=== PATIENT | male | born 1985 | race African-American/Black ===

== ENCOUNTER 2016-12-21 23:32 | Observation (INO) | payer OTHER ==
--- NOTE | 2016-12-22 00:05 | PDOC ---
History of Present Illness - General Chief Complaint: Seizure Stated Complaint: SEIZURE Time Seen by Provider: 12/22/16 00:05 - History of Present Illness Initial Comments: 12/22/16 00:10 Mr. Lemons is a 31 year old male with a significant past medical history of asthma who presents to the emergency department following a seizure at home. 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 He then sat up and failed to recognize her or their daughter - then started shaking uncontrollably. This lasted less than a minute before stopping. The then called EMS - per EMS he had approximately 4 more seizures. Was given 5 of versed en route. The patient denies chest pain, shortness of breath, headache and dizziness. Denies fever, chills, nausea, vomit, diarrhea and constipation. Denies dysuria, frequency, urgency and hematuria. Allergies: NKDA Past surgical history: Appendectomy Social history: Social EtOH and Marijuana use Past History - Past Medical History Allergies/Adverse Reactions: Allergies Allergy/AdvReac Type Severity Reaction Status Date / Time No Known Allergies Allergy Verified 12/21/16 23:43 Home Medications: Ambulatory Orders NK [No Known Home Medication] 12/21/16 Asthma: Yes (2009) Hypercholesterolemia: Yes (diet) - Surgical History Appendectomy: Yes (2001) - Psycho/Social/Smoking Cessation Hx Suicidal Ideation: No Smoking History: Current some day smoker Information on smoking cessation initiated: No Hx Alcohol Use: Yes Drug/Substance Use Hx: Yes (marijuana) Substance Use Type: Alcohol, Marijuana Review of Systems - Review of Systems Comments:: 12/22/16 00:10 GENERAL/CONSTITUTIONAL: No fever or chills. No weakness. HEAD, EYES, EARS, NOSE AND THROAT: No change in vision. No ear pain or discharge. No sore throat. CARDIOVASCULAR: No chest pain or shortness of breath RESPIRATORY: No cough, wheezing, or hemoptysis. GASTROINTESTINAL: No nausea, vomiting, diarrhea or constipation. GENITOURINARY: No dysuria, frequency, or change in urination. MUSCULOSKELETAL: No joint or muscle swelling or pain. No neck or back pain. SKIN: No rash NEUROLOGIC: No headache, vertigo, loss of consciousness, or change in strength/ sensation. ENDOCRINE: No increased thirst. No abnormal weight change HEMATOLOGIC/LYMPHATIC: No anemia, easy bleeding, or history of blood clots. ALLERGIC/IMMUNOLOGIC: No hives or skin allergy. *Physical Exam - Vital Signs Last Vital Signs Temp Pulse Resp BP Pulse Ox 74 23 104/65 98 12/21/16 23:33 12/21/16 23:33 12/21/16 23:33 12/21/16 23:33 - Physical Exam Comments: 12/22/16 00:10 GENERAL: Patient oriented to person, otherwise somnolent. In no acute distress HEAD: No signs of trauma, normocephalic, atraumatic EYES: PERRLA, EOMI, sclera anicteric, conjunctiva clear ENT: Auricles normal inspection, hearing grossly normal, nares patent, oropharynx clear without exudates. Moist mucosa NECK: Normal ROM, supple, no lymphadenopathy, JVD, or masses LUNGS: No distress, speaks full sentences, clear to auscultation bilaterally HEART: Regular rate and rhythm, normal S1 and S2, no murmurs, rubs or gallops, peripheral pulses normal and equal bilaterally. ABDOMEN: Soft, nontender, normoactive bowel sounds. No guarding, no rebound. No masses EXTREMITIES: Normal inspection, Normal range of motion, no edema. No clubbing or cyanosis. NEUROLOGICAL: Cranial nerves II through XII grossly intact. Normal speech, normal gait, no focal sensorimotor deficits SKIN: Warm, Dry, normal turgor, no rashes or lesions noted. ED Treatment Course - LABORATORY CBC & Chemistry Diagram: 12/22/16 00:45 12/22/16 00:45 *DC/Admit/Observation/Transfer Diagnosis at time of Disposition: Seizure - Discharge Dispostion Admit: Yes
[2016-12-22 01:00] LABS: BASOPHIL 0.9 % (0-2.0); EOSINOPHIL 1.3 % (0-4.5); MCH 29.7 pg (25.7-33.7); MCHC 34.4 g/dl (32.0-35.9); MEAN CELL VOLUME 86.2 fl (80-96); MEAN PLT VOLUME 9.1 fl (7.5-11.1); NEUTROPHILS 35.5 % (42.8-82.8); PLATELET COUNT 203 K/MM3 (134-434); RDW 13.9 % (11.9-15.9); WHITE BLOOD COUNT 5.1 K/mm3 (4.0-10.0)
[2016-12-22 01:23] LABS: ALBUMIN 4.1 g/dl (3.4-5.0); ANION GAP 9 (8-16); BILIRUBIN,TOTAL 0.5 mg/dL (0.2-1.0); CALCIUM 8.3 mg/dL (8.5-10.1); CO2 27 mmol/L (21-32); CREATININE 1.1 mg/dL (0.7-1.3); GLUCOSE,RANDOM 83 mg/dL (74-106); SGOT/AST 12 U/L (15-37); SGPT/ALT 22 U/L (12-78); TOT PROT 7.2 g/dl (6.4-8.2)
[2016-12-22 01:24] LABS: ALK PHOS 69 U/L (45-117)
[2016-12-22 01:51] LABS: PLATELET ESTIMATE ADEQUATE (NORMAL)
--- NOTE | 2016-12-22 02:00 | PDOC ---
Attending Attestation - Resident Resident Name: Henri Macario - ED Attending Attestation I have performed the following: I have examined & evaluated the patient, The case was reviewed & discussed with the resident, I agree w/resident's findings & plan, Exceptions are as noted - HPI HPI: 12/22/16 01:54 31 M with h/o asthma presents to ER with altered mental status. Per , pt was asleep at around 9pm today. 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 She states that she shook him and put ice on his face to wake him with no success. She then witness the patient shaking. She reports seeing his entire body shake but denies seeing any rhythmic jerking of his arms or legs. This lasted under a minute. Pt slowly began to regain consciousness afterwards. When EMS arrived, she states that the pt began to shake once again. EMS administered a medication, but is unsure what they gave. Pt has no h/o seizure disorder. Is a social drinker but not daily drinker. No h/ o withdrawal. Last drink was today. Pt also uses marijuana occasionally but no other substances. Per , pt has not had fevers recently. He did have an episode of vomiting 4 days ago but has since been well. In ER, pt is somnolent but arousable. Able to follow commands. Shakes his head "no" when asked if he has pain. - Physicial Exam PE: 12/22/16 01:59 "GENERAL: somnolent but arousable, in no acute distress HEAD: No signs of trauma EYES: PERRLA, EOMI, sclera anicteric, conjunctiva clear ENT: Auricles normal inspection, hearing grossly normal, nares patent, oropharynx clear without exudates. Moist mucosa NECK: Normal ROM, no meningismus, no tenderness, supple, no lymphadenopathy, JVD , or masses LUNGS: Breath sounds equal, clear to auscultation bilaterally. No wheezes, and no crackles HEART: Regular rate and rhythm, normal S1 and S2, no murmurs, rubs or gallops ABDOMEN: Soft, nontender, normoactive bowel sounds. No guarding, no rebound. No masses EXTREMITIES: Normal range of motion, no edema. No clubbing or cyanosis. No cords, erythema, or tenderness NEUROLOGICAL: Cranial nerves II through XII grossly intact. Follows commands, moves all extremities SKIN: Warm, Dry, normal turgor, no rashes or lesions noted. " - Medical Decision Making 12/22/16 02:00 31 M presents to ER with unresponsiveness and possible seizure-like activity. Pt appears post-ictal in ER but may also be lethargic 2/2 medication received by EMS. Has non-focal neuro exam. No evidence of infectious process on exam, afebrile with normal vitals. However, will work up for infectious process as his seizure-like activity may actually be rigors. No signs of meningismus on exam. Pt with no tongue biting or incontinence on exam and no seizure history, making seizure less likely. No h/o withdrawal and no signs of active ETOH withdrawal. - Labs, UA, cultures - CXR - CTH 12/22/16 06:55 CTH negative. Will admit for EEG and MRI for work up of possible seizures.
[2016-12-22] MEDS ORDERED: SODIUM CHLORIDE 1,000 ML IV SCH (04:45)
--- NOTE | 2016-12-22 05:11 | HP ---
CHIEF COMPLAINT: seizures PCP: unknown HISTORY OF PRESENT ILLNESS: Patient is a 31 year old male with a past medical history of asthma presented to the ED after having multiple seizures witnessed by his girlfriend. 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 After a few minutes she put ice on him and patient woke up very confused. She said he did not recognize her and when he woke up he was talking "jibberish". She also says she saw him possibly biting on his tongue. When he woke up she felt like he wanted to communicate with her but he couldn't. She said he had multiple jerking episodes that lasted about a minute and will follow with a more intense episode 5 minutes later. Patient does not remember having these events. He was given IV Versed 5mg by EMS. Earlier that day he said he was at a [facility] where he drank alcohol and smoked weed. He denies bladder incontinence, nausea, vomiting, recent falls, cough, or travel. ER course was notable for: (1) Head CT: no acute pathology (2)EKG: NSR Recent Travel: none PAST MEDICAL HISTORY: Asthma PAST SURGICAL HISTORY: Social History: Smokin cigarettes a day Alcohol: occasionally Drugs: marijuana Family History: not known Allergies No Known Allergies Allergy (Verified 12/21/16 23:43) HOME MEDICATIONS: Home Medications Medication Instructions Recorded NK [No Known Home Medication] 12/21/16 REVIEW OF SYSTEMS GENERAL/CONSTITUTIONAL: No fever or chills. No weakness. HEAD, EYES, EARS, NOSE AND THROAT: No change in vision. No ear pain or discharge. No sore throat. CARDIOVASCULAR: No chest pain or shortness of breath RESPIRATORY: No cough, wheezing, or hemoptysis. GASTROINTESTINAL: No nausea, vomiting, diarrhea or constipation. GENITOURINARY: No dysuria, frequency, or change in urination. MUSCULOSKELETAL: No joint or muscle swelling or pain. No neck or back pain. SKIN: No rash NEUROLOGIC: No headache, vertigo, loss of consciousness, or change in strength/ sensation. ENDOCRINE: No increased thirst. No abnormal weight change HEMATOLOGIC/LYMPHATIC: No anemia, easy bleeding, or history of blood clots. ALLERGIC/IMMUNOLOGIC: No hives or skin allergy PHYSICAL EXAMINATION Vital Signs - 24 hr 12/21/16 23:33 Pulse Rate 74 Respiratory 23 Rate Blood Pressure 104/65 O2 Sat by Pulse 98 Oximetry (%) GENERAL: Awake, alert, and fully oriented, in no acute distress. HEAD: Normal with no signs of trauma. EYES: Pupils equal, round and reactive to light, extraocular movements intact, sclera anicteric, conjunctiva clear. THROAT: oropharynx clear without exudates. Moist mucous membranes. NECK: supple without lymphadenopathy, JVD, or masses. LUNGS: Breath sounds equal, clear to auscultation bilaterally. No wheezes, and no crackles. No accessory muscle use. HEART: Regular rate and rhythm, normal S1 and S2 without murmur, rub or gallop. ABDOMEN: Soft, nontender, not distended, normoactive bowel sounds, no guarding, no rebound, no masses. No hepatomegaly or splenomegaly. MUSCULOSKELETAL: Normal range of motion at all joints. No bony deformities or tenderness. No CVA tenderness. UPPER EXTREMITIES: tenderness to right wrist. 2+ pulses, warm, well-perfused. No cyanosis. No clubbing. No peripheral edema. LOWER EXTREMITIES: 2+ pulses, warm, well-perfused. No calf tenderness. No peripheral edema. NEUROLOGICAL: Cranial nerves II-XII intact. Normal speech. Normal gait. SKIN: Warm, dry, normal turgor, no rashes or lesions noted, normal capillary refill. Laboratory Results - last 24 hr 12/22/16 12/22/16 12/22/16 00:45 00:45 00:45 WBC 5.1 RBC 4.89 Hgb 14.5 Hct 42.1 MCV 86.2 MCH 29.7 MCHC 34.4 RDW 13.9 Plt Count 203 MPV 9.1 Neutrophils % 35.5 L Lymphocytes % 54.4 H Monocytes % 7.9 Eosinophils % 1.3 Basophils % 0.9 Platelet Estimate Adequate Platelet Comment Rare giant plts Sodium 142 Potassium 3.8 Chloride 106 Carbon Dioxide 27 Anion Gap 9 BUN 14 Creatinine 1.1 Creat Clearance w eGFR > 60 Random Glucose 83 Lactic Acid 2.3 H* Calcium 8.3 L Total Bilirubin 0.5 AST 12 L ALT 22 Alkaline Phosphatase 69 Total Protein 7.2 Albumin 4.1 ASSESSMENT/PLAN: Patient is a 31 yo M with a history of Asthma was brought in by EMS and admitted for seizures. #Status Epilepticus -Neurology consulted -Follow up MRI -Follow up EEG -Neuro Assessment Q2 -Follow up head CT -Follow up U/A, Utox #FEN IV Fluids NS 75 CC/Hour Electrolytes WNL Regular Diet #PPX: Start Heparin 5000 SQ Visit type - Emergency Visit Emergency Visit: Yes ED Registration Date: 12/22/16 Care time: The patient presented to the Emergency Department on the above date and was hospitalized for further evaluation of their emergent condition. - New Patient This patient is new to me today: Yes Date on this admission: 12/24/16 - Critical Care Critical Care patient: No
[2016-12-22] MEDS ORDERED: HEPARIN NA (PORCINE) 5,000 UNITS/ML 1ML VIAL ONE (06:02)
--- NOTE | 2016-12-22 06:08 | PN ---
Teaching Attending Note Name of Resident: Sarah Nam ATTENDING PHYSICIAN STATEMENT I saw and evaluated the patient. I reviewed the resident's note and discussed the case with the resident. I agree with the resident's findings and plan as documented. SUBJECTIVE: This is a 31 year old man with a history of asthma who was brought in to the ER after having seizures. He says that he was at a barbecue during the day yesterday. He was doing the cooking and did not eat but had 3 mixed drinks. He did not notice anything unusual. He got home around 7 pm and remembers having an argument with his girlfriend. He does not remember anything after that until he awoke in the ER. As per his girlfriend, she was unable to wake him to go to work around 9:30 pm. She put ice on his body around 10 pm. He sat up and and appeared confused. He then began shake uncontrollably for approximately 1 minute. He was not incontinent and did not bite his tongue. She called EMS and they witnessed him to have additional seizures. He was given Versed 5 mg IV by EMS. He says he has had a mild headache for the last few days. He also notes that he has not been sleeping well recently because he is working nights. He drinks socially and denies drug use. OBJECTIVE: Vital Signs Period Temp Pulse Resp BP Sys/Banks Pulse Ox Last 24 Hr 74 23 104/65 98 HEART: S1S2, RRR LUNGS: Clear ABDOMEN: Soft, non-tender, non-distended, normal BS EXTREMITIES: No edema ASSESSMENT AND PLAN: This is a 31 year old man with a history of asthma who was presents to the ER with seizures. 1. New-onset seizures - Place in observation - Seizure precautions - Neurology consult - MRI of brain ordered by ER
[2016-12-22] MEDS: HEPARIN NA (PORCINE) 5,000 UNITS/ML 1ML VIAL SQ SCH ×2 (06:13→13:30)
[2016-12-22 08:28] VITALS: BMI 30.1
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
[2016-12-22] MEDS ORDERED: VALPROATE SODIUM 500 MG/5 ML VIAL IVPB ONE ×2 (09:32→09:35)
--- NOTE | 2016-12-22 09:44 | EKG ---
Test Reason : Blood Pressure : / mmHG Vent. Rate : 065 BPM Atrial Rate : 065 BPM P-R Int : 178 ms QRS Dur : 104 ms QT Int : 406 ms P-R-T Axes : -06 039 021 degrees QTc Int : 422 ms NORMAL SINUS RHYTHM EARLY REPOLARIZATION RSR' OR QR PATTERN IN V1 SUGGESTS RIGHT VENTRICULAR CONDUCTION DELAY NORMAL ECG NO PREVIOUS ECGS AVAILABLE Confirmed by MD KALYANI, PRANEETH ([id number]) on 12/22/2016 9:43:46 AM Referred By: Confirmed By:PRANEETH AUGUSTE MD
[2016-12-22] MEDS ORDERED: VALPROATE SODIUM 500 MG/5 ML VIAL IV ONE (10:00)
[2016-12-22 12:21] LABS: URINE APPEARANCE CLEAR; URINE BILIRUBIN NEGATIVE (NEGATIVE); URINE BLOOD NEGATIVE (NEGATIVE); URINE COLOR YELLOW; URINE GLUCOSE (UA) NEGATIVE (NEGATIVE); URINE KETONE NEGATIVE (NEGATIVE); URINE LEUK ESTERASE NEGATIVE (NEGATIVE); URINE NITRITE NEGATIVE (NEGATIVE); URINE PROTEIN NEGATIVE (NEGATIVE); URINE UROBILINOGEN NEGATIVE mg/dL (0.2-1.0)
[2016-12-22 12:33] LABS: URINE MARIJUANA THC POSITIVE ng/ml (CUTOFF=50)
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
[2016-12-22] MEDS: DIVALPROEX SODIUM 500 MG TABLET E.C. PO SCH ×2 (13:30→21:21)
[2016-12-22] MEDS ORDERED: ACETAMINOPHEN 325 MG TABLET (FP) PO PRN (14:22)
[2016-12-22 14:47] LABS: BASOPHIL 0.8 % (0-2.0); EOSINOPHIL 0.7 % (0-4.5); MCH 29.2 pg (25.7-33.7); MCHC 33.6 g/dl (32.0-35.9); MEAN CELL VOLUME 86.8 fl (80-96); MEAN PLT VOLUME 8.9 fl (7.5-11.1); NEUTROPHILS 49.7 % (42.8-82.8); PLATELET COUNT 203 K/MM3 (134-434); RDW 13.9 % (11.9-15.9); WHITE BLOOD COUNT 5.7 K/mm3 (4.0-10.0)
[2016-12-22 15:16] LABS: ANION GAP 8 (8-16); CALCIUM 8.5 mg/dL (8.5-10.1); CO2 27 mmol/L (21-32); CREATININE 1.2 mg/dL (0.7-1.3); GLUCOSE,RANDOM 95 mg/dL (74-106)
[2016-12-22 15:26] LABS: THYROID STIMULATING HORMONE 0.67 uIU/ml (0.358-3.74)
[2016-12-23 07:50] LABS: BASOPHIL 0.7 % (0-2.0); MCH 29.3 pg (25.7-33.7); MCHC 33.7 g/dl (32.0-35.9); MEAN CELL VOLUME 86.8 fl (80-96); MEAN PLT VOLUME 9.2 fl (7.5-11.1); PLATELET COUNT 204 K/MM3 (134-434); RDW 14.3 % (11.9-15.9); WHITE BLOOD COUNT 5.5 K/mm3 (4.0-10.0)
[2016-12-23 08:08] LABS: ALBUMIN 3.7 g/dl (3.4-5.0); ALK PHOS 67 U/L (45-117); ANION GAP 8 (8-16); BILIRUBIN,TOTAL 0.7 mg/dL (0.2-1.0); CALCIUM 8.8 mg/dL (8.5-10.1); CO2 28 mmol/L (21-32); CREATININE 1.3 mg/dL (0.7-1.3); GLUCOSE,RANDOM 80 mg/dL (74-106); SGOT/AST 12 U/L (15-37); SGPT/ALT 22 U/L (12-78); TOT PROT 6.7 g/dl (6.4-8.2)
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
[2016-12-23] MEDS ORDERED: PT OWN MED DRAWER 7, Y5N ONE (09:47)
[2016-12-23] MEDS: DIVALPROEX SODIUM 500 MG TABLET E.C. PO SCH (09:48)
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
[2016-12-23 14:17] VITALS: BP 124/66; PULSE 73; TEMP 99
== END 2016-12-23 16:14 | disposition home or self-care (01) ==
LOC: JER 23:32 → JERBED 12-22 04:17 → J5S 12-22 08:13
PROVIDERS: ADMIT Internal Medicine; ATTEND Nurse Practitioner Family
PROC: 3E013GC Introduction of Other Therapeutic Substance into Subcutaneous Tissue, Percutaneous Approach (ICD-10-PCS; principal; 2016-12-22)
PROC: 3E0337Z Introduction of Electrolytic and Water Balance Substance into Peripheral Vein, Percutaneous Approach (ICD-10-PCS; 2016-12-22)
DX: R56.9 Unspecified convulsions (principal); J45.909 Unspecified asthma, uncomplicated; S06.0X9A Concussion with loss of consciousness of unspecified duration, initial encounter; X58.XXXA Exposure to other specified factors, initial encounter; Y93.9 Activity, unspecified; Y92.9 Unspecified place or not applicable; R22.31 Localized swelling, mass and lump, right upper limb; F17.210 Nicotine dependence, cigarettes, uncomplicated
CPT/HCPCS: 36415; 70450-TC; 70551-TC; 71010-TC; 73130-TC-RT; 80048; 80053; 80307; 81003; 83605; 84443; 85025; 93005; 93010; 95816; 99285-25; G0378; J1644

== ENCOUNTER 2017-06-24 13:01 | Inpatient (IN) | payer OTHER ==
--- NOTE | 2017-06-24 13:12 | PDOC ---
Attending Attestation - HPI HPI: 06/24/17 14:36 The patient is a 32 year old male with history of seizures who presents to the ED agitated. Girlfriend at bedside reports the patient took a bottle of Benadryl this morning prior to the onset of his agitation. He was seen at his neurologist's office today but was sent to the ED for further evaluation. En route to the hospital the patient became increasingly agitated. Pt is unable to provide remainder of history secondary to agitation. Documentation prepared by Connie Mata, acting as medical records supervisor for Mindy Gaviria MD. <Connie Mata - Last Filed: 06/24/17 14:36> - Resident Resident Name: Jluis Newton - ED Attending Attestation I have performed the following: I have examined & evaluated the patient, The case was reviewed & discussed with the resident, I agree w/resident's findings & plan, Exceptions are as noted - Physicial Exam PE: GENERAL: Awake, alert, extremely agitated, screaming. Multiple police officers at bedside. Restrained in handcuffs by PD. HEAD: No signs of trauma EYES: PERRLA, EOMI, sclera anicteric, conjunctiva clear ENT: Auricles normal inspection, hearing grossly normal, nares patent, oropharynx clear without exudates. Dry mucosa NECK: Normal ROM, supple, no lymphadenopathy, JVD, or masses LUNGS: Breath sounds equal, clear to auscultation bilaterally. No wheezes, and no crackles HEART: Tachycardic and regular. , no murmurs, rubs or gallops ABDOMEN: Soft, nontender, normoactive bowel sounds. No guarding, no rebound. No masses EXTREMITIES: Normal range of motion, no edema. No clubbing or cyanosis. No cords, erythema, or tenderness NEUROLOGICAL: Cranial nerves II through XII grossly intact. Normal speech. Motor and sensation intact. SKIN: Warm, Dry, normal turgor, no rashes or lesions noted. - Medical Decision Making Pt presents s/p benadryl overdose. He was given ativan for agitation, haney was placed for urinary retention. He improved with ativan. Labs returned with elevated anion gap and low Bicarb. Will send ABG, lactate. <Mindy Gaviria - Last Filed: 06/24/17 14:54>
[2017-06-24 13:13] VITALS: BMI 32.5
--- NOTE | 2017-06-24 13:16 | PDOC ---
History of Present Illness - General Chief Complaint: Overdose Stated Complaint: OVERDOSE Time Seen by Provider: 06/24/17 13:09 - History of Present Illness Initial Comments: 06/24/17 13:19 The patient is a 32 year old male with a history of seizures who presents for evaluation of agitation. The patient is brought in by Hector MORALES. Per report from Christoph MORALES, the patient's called police due to the patient reportedly taking a bottle of benadryl and becoming acutely agitated requiring full restraints from Christoph MORALES. The patient's girlfriend noted that the patient was more lethargic this morning and saw that he took benadryl but is unsure of the amount. They initially presented to the patient's neurologist's appointment for evaluation and then sent to the ER for further evaluation. On rout to the ED, the patient became agutely agitated tearing off his clothes resulting in the patient's girlfriend calling hector MORALES. The patient is acutely agitated on exam and unable to cooperate. Past History - Past Medical History Allergies/Adverse Reactions: Allergies Allergy/AdvReac Type Severity Reaction Status Date / Time No Known Allergies Allergy Verified 06/24/17 13:09 Home Medications: Ambulatory Orders Doxylamine Succinate [Sleep Aid] 50 mg PO HS PRN 06/24/17 levETIRAcetam [Keppra -] 500 mg PO BID 06/24/17 Asthma: Yes (2009) COPD: No Hypercholesterolemia: Yes (diet) - Surgical History Appendectomy: Yes (2001) - Suicide/Smoking/Psychosocial Hx Smoking History: Never smoked Have you smoked in the past 12 months: Yes Information on smoking cessation initiated: No 'Breaking Loose' booklet given: 12/22/16 Hx Alcohol Use: Yes (drinks alcohol socially ) Drug/Substance Use Hx: Yes (marijuana) Substance Use Type: Alcohol, Marijuana Hx Substance Use Treatment: No Review of Systems - Review of Systems Able to Perform ROS?: No (Agitation) *Physical Exam - Vital Signs Last Vital Signs Temp Pulse Resp BP Pulse Ox 124 H 18 160/68 06/24/17 13:10 06/24/17 13:10 06/24/17 13:10 - Physical Exam Comments: 06/24/17 13:32 General Appearance: Nourished. Acutely Agitated HEENT: Minimally reactive small pupils. Dry mucus membranes. No Pharyngeal Erythema, Tonsillar Exudate, Tonsillar Erythema Neck: No Cervical Lymphadenopathy Respiratory/Chest: Lungs Clear, Normal Breath Sounds. No Crackles, Rales, Rhonchi, Wheezing Cardiovascular: Regular Rhythm, Tachycardic. No Murmur, Gallops, Rubs Gastrointestinal/Abdominal: Normal Bowel Sounds, Soft. No Guarding, Rebound, Tenderness Musculoskeletal: No CVA Tenderness Extremity: Normal Capillary Refill Integumentary: Normal Color, Dry, Warm Neurologic: Patient is acutely Agitated and uncooperative with the exam. Moving all 4 extremities equally. Heart Score/ECG Review #1 ECG reviewed & interpreted by me at: 13:36 (Sinus Tachycardia) General ECG Interpretation: Sinus Rhythm, Normal Intervals, No acute ischemic changes ED Treatment Course - LABORATORY CBC & Chemistry Diagram: 06/24/17 13:20 06/24/17 16:31 - Medications Given in the ED: ED Medications Discontinued Medications Generic Name Dose Route Start Last Admin Trade Name Freq PRN Reason Stop Dose Admin Lorazepam 2 mg 06/24/17 13:11 06/24/17 13:13 Ativan Injection - IVPUSH 06/24/17 13:12 2 mg ONCE ONE Administration Medical Decision Making - Medical Decision Making 06/24/17 13:36 The patient is a 32 year old male with a history of seizures who presents for evaluation of agitation. Given the patient's acute agitation with a history of ingestion of an unknown amount of Benadryl, it is likely the patient's current agitation is due to a dystonic reaction to the benadryl. The patient required 2mg of Ativan in the ED. We will obtain a cbc, cmp, ekg, ua, urine tox, etoh level, acetominophen level, salycilate level to evaluate further. We will continue to monitor and reassess. 06/24/17 14:40 We discussed the case with Poison Control who recommended admission for further monitoring and treating the patient with Benzodiazapines to keep the patient calm. The patient should be monitored due to his abnormal vital signs as well. cbc demonstrates an elevated WBC. The patient's cmp demonstrates a bicarb of 6 and anion gap of 35 with a creatinine of 2.0. U tox demonstrates positive THC. We will obtain a abg and lactate to investigate the patient's anion gap of 35. We will also treat the patient with iv fluids in the meantime and repeat a bmp. 06/24/17 18:54 BMP demonstrates a bicarb of 21 and an anion gap of 10. We discussed the case with the hospitalist team who accepted the patient for admission. *DC/Admit/Observation/Transfer Diagnosis at time of Disposition: ANA MARIA (acute kidney injury), Lactic acid acidosis Overdose Qualifiers: Encounter type: initial encounter Injury intent: undetermined intent Qualified Code(s): T50.904A - Poisoning by unspecified drugs, medicaments and biological substances, undetermined, initial encounter - Discharge Dispostion Condition at time of disposition: Stable Admit: Yes - Referrals - Patient Instructions - Post Discharge Activity
[2017-06-24 13:32] LABS: BASO % 0.6 % (0-2.0); EOS % 0.2 % (0-4.5); HEMOGLOBIN 16.4 GM/dL (11.7-16.9); LYMPH % 38.9 % (8-40); MCH 29.6 pg (25.7-33.7); MCHC 32.2 g/dl (32.0-35.9); MEAN CELL VOLUME 91.8 fl (80-96); MEAN PLT VOLUME 9.6 fl (7.5-11.1); MONO % 9.9 % (3.8-10.2); NEUT % 50.4 % (42.8-82.8); PLATELET COUNT 240 K/MM3 (134-434); RBC 5.55 M/mm3 (4.00-5.60); RDW 14.3 % (11.9-15.9); WHITE BLOOD COUNT 11.6 K/mm3 (4.0-10.0)
[2017-06-24 13:47] LABS: URINE APPEARANCE CLEAR; URINE BILIRUBIN NEGATIVE (NEGATIVE); URINE BLOOD 1+ (NEGATIVE); URINE COLOR LTYELLOW; URINE GLUCOSE (UA) NEGATIVE (NEGATIVE); URINE KETONE NEGATIVE (NEGATIVE); URINE LEUK ESTERASE NEGATIVE (NEGATIVE); URINE NITRITE NEGATIVE (NEGATIVE); URINE UROBILINOGEN NEGATIVE mg/dL (0.2-1.0)
[2017-06-24 13:53] LABS: URINE PROTEIN 2+ (NEGATIVE)
[2017-06-24 13:54] LABS: URINE BACTERIA FEW /hpf (NONE SEEN); URINE HYALINE CAST 5 /lpf; URINE MUCUS RARE
[2017-06-24 14:11] LABS: ALBUMIN 5.4 g/dl (3.4-5.0); ALK PHOS 78 U/L (45-117); ANION GAP 35 (8-16); BILIRUBIN,TOTAL 0.5 mg/dL (0.2-1.0); BLOOD UREA NITROGEN 20 mg/dL (7-18); CALCIUM 9.6 mg/dL (8.5-10.1); CHLORIDE 102 mmol/L (98-107); CO2 6 mmol/L (21-32); GLUCOSE,RANDOM 200 mg/dL (74-106); POTASSIUM 4.1 mmol/L (3.5-5.1); SGOT/AST 25 U/L (15-37); SGPT/ALT 48 U/L (12-78); SODIUM 143 mmol/L (136-145); TOT PROT 9.2 g/dl (6.4-8.2)
[2017-06-24 14:14] LABS: SALICYLATE 5.342 mg/dL
[2017-06-24 14:32] LABS: ACETAMINOPHEN <2.0 ug/mL
[2017-06-24 14:50] LABS: COCAINE, UR NEGATIVE ng/ml (CUTOFF=300); METHADONE, UR NEGATIVE ng/ml (CUTOFF=300); OPIATES, URI NEGATIVE ng/ml (CUTOFF=300); PHENCYCLIDINE,URINE NEGATIVE ng/ml (CUTOFF=25); URINE AMPHETAMINES NEGATIVE ng/ml (CUTOFF=500); URINE BARBITURATES NEGATIVE ng/ml (CUTOFF=200); URINE BENZODIAZEPINES NEGATIVE ng/ml (CUTOFF=200)
[2017-06-24] MEDS ORDERED: SODIUM CHLORIDE 1,000 ML IV STA ×2 (14:55→17:13)
[2017-06-24 16:07] LABS: CARBOXYHEMOGLOBIN 1.2 gm% (0.5-2.0)
--- NOTE | 2017-06-24 16:24 | EKG ---
Test Reason : Blood Pressure : / mmHG Vent. Rate : 127 BPM Atrial Rate : 127 BPM P-R Int : 000 ms QRS Dur : 086 ms QT Int : 412 ms P-R-T Axes : 042 045 061 degrees QTc Int : 598 ms SINUS TACHYCARDIA NONSPECIFIC T WAVE ABNORMALITY ABNORMAL ECG WHEN COMPARED WITH ECG OF 22-DEC-2016 03:16, VENT. RATE HAS INCREASED BY [address] NO LONGER ELEVATED IN ANTEROLATERAL LEADS NONSPECIFIC T WAVE ABNORMALITY NOW EVIDENT IN LATERAL LEADS Confirmed by MD VIANCA, SUDHEER ([id number]) on 06/24/2017 4:24:05 PM Referred By: Confirmed By:SUDHEER COLEY MD
[2017-06-24 17:04] LABS: ANION GAP 10 (8-16); BLOOD UREA NITROGEN 17 mg/dL (7-18); CALCIUM 7.9 mg/dL (8.5-10.1); CHLORIDE 107 mmol/L (98-107); CO2 21 mmol/L (21-32); CREATININE 1.8 mg/dL (0.7-1.3); GLUCOSE,RANDOM 122 mg/dL (74-106); POTASSIUM 4.5 mmol/L (3.5-5.1); SODIUM 138 mmol/L (136-145)
[2017-06-24 17:57] LABS: ARTERIAL BLD GAS O2 SATURATION 96.8 % (90-98.9); ARTERIAL BLOOD GAS BASE EXCESS -5.9 meq/l (-2-2); ARTERIAL BLOOD GAS PCO2 33.3 mmHg (35-45); ARTERIAL BLOOD GAS pH 7.36 (7.35-7.45)
[2017-06-24 17:58] LABS: ALLENS TEST POSITIVE
--- NOTE | 2017-06-24 18:38 | HP ---
CHIEF COMPLAINT: "I has a seizure" PCP: Dr Adam HISTORY OF PRESENT ILLNESS: This is a 32 yo m with PMH of seizures d/p on keppra, who presents s/p benadryl overdose. he was initially brought in by girlfriend, agitated, experienced dystonia, had tachycardia, urinary retention and mydriasis. Was treated with ativan, haney and IVF. above symptoms resolved. Poison control was sontacted and per their instructions, patient is to be treated with IVF and benzos only. Patient states that last night he took a whole bottle of benadryl because he desperately wanted to sleep and felt depressed. He is unsure of whether he wanted top but states "my life is in disarray". he has not attempted SI before but states that he has been depressed for a while. denies changes in appetite or withdrawal from social activities. He currently denies CP, sob, n/v , and pain, diaphoresis, vision changes, dry mouth/eyes, foral weakness, numbness. QTc 598 ER course was notable for: (1)labs (2)ekg (3)benzo, ivf Recent Travel: denies PAST MEDICAL HISTORY: as above PAST SURGICAL HISTORY: denies Social History: lives with gf, 5 kids Smokin cogs/day since 13 yo Alcohol: social once a mo Drugs: marijuana smoker daily Family History: sister had CVA, SZ Allergies No Known Allergies Allergy (Verified 06/24/17 13:09) HOME MEDICATIONS: Home Medications Medication Instructions Recorded Doxylamine Succinate [Sleep Aid] 50 mg PO HS PRN 06/24/17 levETIRAcetam [Keppra -] 500 mg PO BID 06/24/17 REVIEW OF SYSTEMS CONSTITUTIONAL: Absent: fever, chills, diaphoresis, generalized weakness, malaise HEENT: Absent: rhinorrhea, nasal congestion, throat pain, throat swelling, difficulty swallowing, visual changes CARDIOVASCULAR: Absent: chest pain, syncope, palpitations, irregular heart rate, lightheadedness , peripheral edema RESPIRATORY: Absent: cough, shortness of breath GASTROINTESTINAL: Absent: abdominal pain, abdominal distension, nausea, vomiting, diarrhea, constipation GENITOURINARY: Absent: dysuria, MUSCULOSKELETAL: Absent: myalgia, arthralgia SKIN: Absent: rash, itching, pallor HEMATOLOGIC/IMMUNOLOGIC: Absent: easy bleeding, easy bruising ENDOCRINE: Absent: unexplained weight gain, unexplained weight loss, heat intolerance, cold intolerance NEUROLOGIC: Absent: headache, focal weakness or paresthesias PSYCHIATRIC: Absent: homicidal ideation, hallucinations. PHYSICAL EXAMINATION Vital Signs - 24 hr 06/24/17 06/24/17 06/24/17 13:10 13:15 13:42 Temperature Pulse Rate 124 H Pulse Rate [ 122 H Apical] Respiratory 18 30 H Rate Blood Pressure 160/68 Blood Pressure 142/80 [Left Arm] O2 Sat by Pulse 98 98 Oximetry (%) 06/24/17 06/24/17 06/24/17 13:46 16:28 16:47 Temperature 98.1 F Pulse Rate Pulse Rate [ 100 H 100 H Apical] Respiratory 20 20 Rate Blood Pressure Blood Pressure 132/80 134/62 [Left Arm] O2 Sat by Pulse 98 98 Oximetry (%) 06/24/17 18:33 Temperature Pulse Rate Pulse Rate [ 89 Apical] Respiratory 20 Rate Blood Pressure Blood Pressure 126/82 [Left Arm] O2 Sat by Pulse 98 Oximetry (%) GENERAL: Awake, alert, and fully oriented, in no acute distress. HEAD: Normal with no signs of trauma. EYES: Pupils equal, round and reactive to light, slight mydriasis, extraocular movements intact, sclera anicteric, conjunctiva clear. No lid lag. EARS, NOSE, THROAT: Moist mucous membranes. NECK: supple without JVD LUNGS: Breath sounds equal, clear to auscultation bilaterally. HEART: Regular rate and rhythm, normal S1 and S2 ABDOMEN: Soft, nontender, not distended, normoactive bowel sounds, no guarding, no rebound, no masses. MUSCULOSKELETAL: No CVA tenderness. UPPER EXTREMITIES: 2+ pulses, warm, well-perfused. No cyanosis. No clubbing. No peripheral edema. LOWER EXTREMITIES: 2+ pulses, warm, well-perfused. No calf tenderness. No peripheral edema. NEUROLOGICAL: Cranial nerves II-XII intact. slightly slurred speech, strength 5 /5 in ue le, 1+ patellar reflexes, sensation intact, no dystonia PSYCHIATRIC: Cooperative. Good eye contact. Appropriate mood and affect. SKIN: Warm, dry, normal turgor Laboratory Results - last 24 hr 06/24/17 06/24/17 06/24/17 13:20 13:20 13:20 WBC 11.6 H D RBC 5.55 Hgb 16.4 D Hct 51.0 H D MCV 91.8 MCH 29.6 MCHC 32.2 RDW 14.3 Plt Count 240 MPV 9.6 Neutrophils % 50.4 D Lymphocytes % 38.9 Monocytes % 9.9 Eosinophils % 0.2 Basophils % 0.6 Anticoagulation Therapy Puncture Site ABG pH ABG pCO2 at Pt Temp ABG pO2 at Pt Temp ABG HCO3 ABG O2 Sat (Measured) ABG O2 Content ABG Base Excess Taco Test Carboxyhemoglobin Methemoglobin O2 Delivery Device Oxygen Flow Rate Vent Mode Vent Rate Mechanical Rate Pressure Support Vent Sodium 143 Potassium 4.1 Chloride 102 Carbon Dioxide 6 L D Anion Gap 35 H BUN 20 H D Creatinine 2.0 H D Creat Clearance w eGFR 38.44 POC Glucometer [phone] Random Glucose 200 H D Lactic Acid Calcium 9.6 Total Bilirubin 0.5 D AST 25 D ALT 48 D Alkaline Phosphatase 78 Ammonia Total Protein 9.2 H D Albumin 5.4 H D Urine Color Urine Appearance Urine pH Ur Specific [place] Urine Protein Urine Glucose (UA) Urine Ketones Urine Blood Urine Nitrite Urine Bilirubin Urine Urobilinogen Ur Leukocyte Esterase Urine WBC (Auto) Urine RBC (Auto) Urine Bacteria Hyaline Casts Urine Mucus Salicylates 5.342 Opiates Screen Methadone Screen Acetaminophen <2.0 Barbiturate Screen Valproic Acid Phencyclidine Screen Ur Amphetamines Screen MDMA (Ecstasy) Screen Benzodiazepines Screen Cocaine Screen U Marijuana (THC) Screen Alcohol, Quantitative < 5.0 06/24/17 06/24/17 06/24/17 13:30 13:30 14:15 WBC RBC Hgb Hct MCV MCH MCHC RDW Plt Count MPV Neutrophils % Lymphocytes % Monocytes % Eosinophils % Basophils % Anticoagulation Therapy Puncture Site ABG pH ABG pCO2 at Pt Temp ABG pO2 at Pt Temp ABG HCO3 ABG O2 Sat (Measured) ABG O2 Content ABG Base Excess Taco Test Carboxyhemoglobin Methemoglobin O2 Delivery Device Oxygen Flow Rate Vent Mode Vent Rate Mechanical Rate Pressure Support Vent Sodium Potassium Chloride Carbon Dioxide Anion Gap BUN Creatinine Creat Clearance w eGFR POC Glucometer Random Glucose Lactic Acid Calcium Total Bilirubin AST ALT Alkaline Phosphatase Ammonia 54.78 H Total Protein Albumin Urine Color Ltyellow Urine Appearance Clear Urine pH 6.0 Ur Specific [place] 1.019 Urine Protein 2+ H Urine Glucose (UA) Negative Urine Ketones Negative Urine Blood 1+ H Urine Nitrite Negative Urine Bilirubin Negative Urine Urobilinogen Negative Ur Leukocyte Esterase Negative Urine WBC (Auto) 4 Urine RBC (Auto) 1 Urine Bacteria Few Hyaline Casts 5 Urine Mucus Rare Salicylates Opiates Screen Negative Methadone Screen Negative Acetaminophen Barbiturate Screen Negative Valproic Acid Phencyclidine Screen Negative Ur Amphetamines Screen Negative MDMA (Ecstasy) Screen Negative Benzodiazepines Screen Negative Cocaine Screen Negative U Marijuana (THC) Screen Positive Alcohol, Quantitative 06/24/17 06/24/17 06/24/17 14:15 15:56 16:31 WBC RBC Hgb Hct MCV MCH MCHC RDW Plt Count MPV Neutrophils % Lymphocytes % Monocytes % Eosinophils % Basophils % Anticoagulation Therapy Puncture Site ABG pH ABG pCO2 at Pt Temp ABG pO2 at Pt Temp ABG HCO3 ABG O2 Sat (Measured) ABG O2 Content ABG Base Excess Taco Test Carboxyhemoglobin 1.2 Methemoglobin 1.3 O2 Delivery Device Oxygen Flow Rate Vent Mode Vent Rate Mechanical Rate Pressure Support Vent Sodium Potassium Chloride Carbon Dioxide Anion Gap BUN Creatinine Creat Clearance w eGFR POC Glucometer Random Glucose Lactic Acid 3.9 H* Calcium Total Bilirubin AST ALT Alkaline Phosphatase Ammonia Total Protein Albumin Urine Color Urine Appearance Urine pH Ur Specific [place] Urine Protein Urine Glucose (UA) Urine Ketones Urine Blood Urine Nitrite Urine Bilirubin Urine Urobilinogen Ur Leukocyte Esterase Urine WBC (Auto) Urine RBC (Auto) Urine Bacteria Hyaline Casts Urine Mucus Salicylates Opiates Screen Methadone Screen Acetaminophen Barbiturate Screen Valproic Acid < 3.000 L Phencyclidine Screen Ur Amphetamines Screen MDMA (Ecstasy) Screen Benzodiazepines Screen Cocaine Screen U Marijuana (THC) Screen Alcohol, Quantitative 06/24/17 06/24/17 16:31 17:12 WBC RBC Hgb Hct MCV MCH MCHC RDW Plt Count MPV Neutrophils % Lymphocytes % Monocytes % Eosinophils % Basophils % Anticoagulation Therapy No Result Required. Puncture Site Right radial ABG pH 7.36 ABG pCO2 at Pt Temp 33.3 L ABG pO2 at Pt Temp 104.0 H ABG HCO3 18.2 L ABG O2 Sat (Measured) 96.8 ABG O2 Content 20.1 ABG Base Excess -5.9 L Taco Test Positive Carboxyhemoglobin Methemoglobin O2 Delivery Device No Result Required. Oxygen Flow Rate No Vent Mode No Result Required. Vent Rate No Result Required. Mechanical Rate No Result Required. Pressure Support Vent No Result Required. Sodium 138 Potassium 4.5 Chloride 107 Carbon Dioxide 21 D Anion Gap 10 BUN 17 Creatinine 1.8 H Creat Clearance w eGFR POC Glucometer Random Glucose 122 H D Lactic Acid Calcium 7.9 L Total Bilirubin AST ALT Alkaline Phosphatase Ammonia Total Protein Albumin Urine Color Urine Appearance Urine pH Ur Specific [place] Urine Protein Urine Glucose (UA) Urine Ketones Urine Blood Urine Nitrite Urine Bilirubin Urine Urobilinogen Ur Leukocyte Esterase Urine WBC (Auto) Urine RBC (Auto) Urine Bacteria Hyaline Casts Urine Mucus Salicylates Opiates Screen Methadone Screen Acetaminophen Barbiturate Screen Valproic Acid Phencyclidine Screen Ur Amphetamines Screen MDMA (Ecstasy) Screen Benzodiazepines Screen Cocaine Screen U Marijuana (THC) Screen Alcohol, Quantitative ASSESSMENT/PLAN: This is a 32 yo m with PMH of seizures d/p on keppra, who presents s/p benadryl overdose. he was initially brought in by girlfriend, agitated, experienced dystonia, had tachycardia and mydriasis. Benadryl OD -dystonia, tachycardia, severe mydriasis resoved -maintain haney for urinary retention -per poison control, treat with Ativan PRN , IVF only -QTc prolonged 598; repeat EKG at 10 PM -telemetry monitoring ANA MARIA -creat 2->1.8 after 2 L (baseline 1.2) -IVF, urine lytes, fena -monitor creat SI -psychiatry consult -1:1 SZ d/o -resume home keppra FEN NS @ 150 lytes stable regular diet scd's telemetry Problem List - Problem (1) ANA MARIA (acute kidney injury) Code(s): N17.9 - ACUTE KIDNEY FAILURE, UNSPECIFIED (2) Overdose Code(s): T50.901A - POISONING BY UNSP DRUG/MEDS/BIOL SUBST, ACCIDENTAL, INIT Qualifiers: Encounter type: initial encounter Injury intent: undetermined intent Qualified Code(s): T50.904A - Poisoning by unspecified drugs, medicaments and biological substances, undetermined, initial encounter (3) Seizure Code(s): R56.9 - UNSPECIFIED CONVULSIONS (4) Suicidal ideation Code(s): R45.851 - SUICIDAL IDEATIONS (5) Suicidal overdose Code(s): T50.902A - POISONING BY UNSP DRUG/MEDS/BIOL SUBST, SELF-HARM, INIT (6) Prolonged QT interval Code(s): R94.31 - ABNORMAL ELECTROCARDIOGRAM [ECG] [EKG] Visit type - Emergency Visit Emergency Visit: Yes Care time: The patient presented to the Emergency Department on the above date and was hospitalized for further evaluation of their emergent condition. - New Patient This patient is new to me today: Yes Date on this admission: 06/24/17 - Critical Care Critical Care patient: No Hospitalist Screening - Colonoscopy Questionnaire Colonoscopy Questionnaire: Colonoscopy Questionnaire - Patient: 50 - 75 years old and never had a screening colonoscopy: No History of colon or rectal polyps, or CA: No History of IBD, Crohn's disease or UC: No History of abdominal radiation therapy as a child: No - Relative: 1 with colon or rectal CA, or polyps at age 60 or younger: No Colon or rectal CA diagnosed at age 45 or younger: No Multiple relatives with colon or rectal CA: No - Outcome: Screening Result: Negative Screen
[2017-06-24] MEDS ORDERED: LORazepam 2 MG/ML SDV VIAL IVPUSH PRN (19:10)
--- NOTE | 2017-06-24 19:14 | PN ---
Teaching Attending Note Name of Resident: Lisa Renner ATTENDING PHYSICIAN STATEMENT I saw and evaluated the patient. I reviewed the resident's note and discussed the case with the resident. I agree with the resident's findings and plan as documented. SUBJECTIVE: 32 M with hx. of Katelyn who presents with agitation. Presented with [facility]. As per pt.s , he had taken a bottle of Benadryl. En route to ED, pt. became agitated and started ripping off his clothes. States he feels tired. Denies any chest pain, pressure or shortness of breath. No fevers or chills. Does not have any palpitations. As per pt. he had a seizure in car prior to arrival, pt, initially stated he was off Depakote for his seizure by [facility]. Upon further questioning stated he is taking Keppra. Unknown if he had taken his dose earlier today. OBJECTIVE: Physical: VS: Vital Signs Period Temp Pulse Resp BP Sys/Banks Pulse Ox Last 24 Hr 98.1 F 89-124 18-30 126-160/62-82 98-98 GEN: NAD, Resting in bed, AA0X3 HEENT: NCAT, PERRL, Throat without erythema or exudates CARD: RRR S1, S2 RESP: CTAB ABD: BSX4, NTD to palpation EXT: - C/C/E Neuro: Pt. with consciouss jerking movement of limbs that happen sporadically. Otherwse intact CBCD WBC 11.6 K/mm3 (4.0-10.0) H D 06/24/17 13:20 RBC 5.55 M/mm3 (4.00-5.60) 06/24/17 13:20 Hgb 16.4 GM/dL (11.7-16.9) D 06/24/17 13:20 Hct 51.0 % (35.4-49) H D 06/24/17 13:20 MCV 91.8 fl (80-96) 06/24/17 13:20 MCHC 32.2 g/dl (32.0-35.9) 06/24/17 13:20 RDW 14.3 % (11.9-15.9) 06/24/17 13:20 Plt Count 240 K/MM3 (134-434) 06/24/17 13:20 MPV 9.6 fl (7.5-11.1) 06/24/17 13:20 CMP Sodium 138 mmol/L (136-145) 06/24/17 16:31 Potassium 4.5 mmol/L (3.5-5.1) 06/24/17 16:31 Chloride 107 mmol/L (98-107) 06/24/17 16:31 Carbon Dioxide 21 mmol/L (21-32) D 06/24/17 16:31 Anion Gap 10 (8-16) 06/24/17 16:31 BUN 17 mg/dL (7-18) 06/24/17 16:31 Creatinine 1.8 mg/dL (0.7-1.3) H 06/24/17 16:31 Creat Clearance w eGFR 38.44 (>60) 06/24/17 13:20 Random Glucose 122 mg/dL (74-106) H D 06/24/17 16:31 Calcium 7.9 mg/dL (8.5-10.1) L 06/24/17 16:31 Total Bilirubin 0.5 mg/dL (0.2-1.0) D 06/24/17 13:20 AST 25 U/L (15-37) D 06/24/17 13:20 ALT 48 U/L (12-78) D 06/24/17 13:20 Alkaline Phosphatase 78 U/L (45-117) 06/24/17 13:20 Total Protein 9.2 g/dl (6.4-8.2) H D 06/24/17 13:20 Albumin 5.4 g/dl (3.4-5.0) H D 06/24/17 13:20 EKG: NSR QTC 598 CXR: PENDING ASSESSMENT AND PLAN: 32 M with Pmhx. of Seixure do who presents with agitation, found to have a Benadryl overdose\ 1.) Overdose of Benadryl - Ativan Prn Agitation - dystonia- CT HEAD - Monitor On tele - Poison control called and spoken to 2.) Inc. QtC - Repeat EKG in am - Keep Mg2+>2.0, and K>4.0 3.) Seizure DO - Increased LA due to seizure prior to arrival - Seizure percautions - Keppra - Neuro consult, for dystonia 4.) ANA MARIA - IVF - Repeat Cr 5.) Dvt ppx - SCDs place in Obs-Tele
[2017-06-24] MEDS: SODIUM CHLORIDE 1,000 ML IV SCH (20:16)
[2017-06-24 20:21] LABS: URINE CREATININE 97.1 mg/dL (20-370)
[2017-06-24 20:34] LABS: PHOSPHOROUS 3.3 mg/dL (2.5-4.9)
[2017-06-24 22:37] LABS: MAGNESIUM 2.9 mg/dL (1.8-2.4); PHOSPHOROUS 3.8 mg/dL (2.5-4.9)
[2017-06-24] MEDS ORDERED: ACETAMINOPHEN 500 MG TABLET (FP) PO ONE (23:29)
[2017-06-24] MEDS ORDERED: ACETAMINOPHEN 325 MG TABLET (FP) PO ONE (23:30)
[2017-06-24] MEDS ORDERED: LORazepam 2 MG/ML SDV VIAL IVPUSH ONE (23:33)
[2017-06-24] MEDS: levETIRAcetam 500 MG TABLET (FP) PO SCH (23:44)
--- NOTE | 2017-06-24 23:55 | HOSP ---
Physical Examination Vital Signs: Vital Signs Temperature 98.1 F 06/24/17 13:46 Pulse Rate 89 06/24/17 18:33 Respiratory Rate 20 06/24/17 20:00 Blood Pressure 126/82 06/24/17 18:33 O2 Sat by Pulse Oximetry (%) 98 06/24/17 20:00 Labs: CBC, BMP 06/24/17 13:20 06/24/17 16:31 Hospitalist Encounter Assessment: Rapid response called at 11:30pm. Reported that patient was having a seizure. On arrival, patient was not actively seizing, was awake and alert but confused. No acute distress. Vitals were within normal limits. PE: NEURO: no focal deficits, CN intact. CARDS: RRR, no murmurs LUNGS: CTA A/P: Seizure disorder without any current antiepileptics, not actively seizing -order 2mg ativan -resume keppra 500 bid -CT head to r/o stroke -neuro consult dr. rojo Baldemar Miller D.O., PGY1 Discussed with Dr. Olivares Visit type - Emergency Visit Emergency Visit: No - New Patient This patient is new to me today: Yes Date on this admission: 06/24/17 - Critical Care Critical Care patient: No
[2017-06-25 06:29] LABS: BASO % 0.4 % (0-2.0); EOS % 0.1 % (0-4.5); HEMATOCRIT 40.6 % (35.4-49); LYMPH % 16.1 % (8-40); MCHC 34.5 g/dl (32.0-35.9); MEAN CELL VOLUME 87.1 fl (80-96); MEAN PLT VOLUME 9.7 fl (7.5-11.1); MONO % 12.7 % (3.8-10.2); NEUT % 70.7 % (42.8-82.8); PLATELET COUNT 199 K/MM3 (134-434); RBC 4.66 M/mm3 (4.00-5.60); RDW 14.2 % (11.9-15.9); WHITE BLOOD COUNT 11.2 K/mm3 (4.0-10.0)
[2017-06-25 07:10] LABS: ALBUMIN 4.3 g/dl (3.4-5.0); ANION GAP 13 (8-16); BLOOD UREA NITROGEN 13 mg/dL (7-18); CALCIUM 8.4 mg/dL (8.5-10.1); CHLORIDE 108 mmol/L (98-107); CO2 21 mmol/L (21-32); CREATININE 1.5 mg/dL (0.7-1.3); GLUCOSE,RANDOM 74 mg/dL (74-106); MAGNESIUM 2.9 mg/dL (1.8-2.4); PHOSPHOROUS 3.8 mg/dL (2.5-4.9); POTASSIUM 4.1 mmol/L (3.5-5.1); SGOT/AST 191 U/L (15-37); SGPT/ALT 60 U/L (12-78); SODIUM 142 mmol/L (136-145)
[2017-06-25 07:12] LABS: ALK PHOS 58 U/L (45-117)
--- NOTE | 2017-06-25 08:24 | PN ---
Physical Exam: SUBJECTIVE: Patient seen and examined. Rapid response called last for possible seizure. Denies CP, chest discomfort, n/v, or fever. c/o dry mouth. OBJECTIVE: Vital Signs Period Temp Pulse Resp BP Sys/Banks Pulse Ox Last 24 Hr 97.7 F-98.7 F 76-124 18-30 119-160/62-86 98-99 GENERAL: lying comfortably in bed, nad EYES: PERRL, extraocular movements intact, sclera anicteric, conjunctiva clear. No ptosis. ENT: oropharynx clear without exudates, MMM NECK: supple, no cervical LAD LUNGS: CTAB HEART: rrr, normal s/1/s2, no m/r/g, no JVD ABDOMEN: Soft, ntnd, normoactive BS EXTREMITIES: 2+ DP pulses, wwp, no edema NEUROLOGICAL: Cranial nerves II through XII grossly intact. Normal speech, normal gait PSYCH: cooperative, good eye contact, denies active SI/HI CBC, BMP 06/25/17 06:05 06/25/17 06:05 06/25/17 06:05 Calcium 8.4 L Phosphorus 3.8 Magnesium 2.9 H Total Bilirubin 1.0 D AST 191 H D ALT 60 D Alkaline Phosphatase 58 D Total Protein 7.0 D Albumin 4.3 D Troponin, BNP 06/25/17 06/25/17 06:05 11:56 Troponin I 0.11 H 0.03 D ABG Results ABG pH 7.42 (7.35-7.45) 06/25/17 11:10 ABG pCO2 at Pt Temp 34.6 mmHg (35-45) L 06/25/17 11:10 ABG pO2 at Pt Temp 88.2 mmHg (80-100) 06/25/17 11:10 ABG HCO3 22.2 meq/L (22-26) 06/25/17 11:10 ABG O2 Sat (Measured) 96.5 % (90-98.9) 06/25/17 11:10 ABG O2 Content 18.7 % vol (15-22) 06/25/17 11:10 ABG Base Excess -1.1 meq/l (-2-2) 06/25/17 11:10 Urine Test Results Urine Color Ltyellow 06/24/17 13:30 Urine Appearance Clear 06/24/17 13:30 Urine pH 6.0 (5.0-8.0) 06/24/17 13:30 Ur Specific [place] 1.019 (1.001-1.035) 06/24/17 13:30 Urine Protein 2+ (NEGATIVE) H 06/24/17 13:30 Urine Glucose (UA) Negative (NEGATIVE) 06/24/17 13:30 Urine Ketones Negative (NEGATIVE) 06/24/17 13:30 Urine Blood 1+ (NEGATIVE) H 06/24/17 13:30 Urine Nitrite Negative (NEGATIVE) 06/24/17 13:30 Urine Bilirubin Negative (NEGATIVE) 06/24/17 13:30 Ur Leukocyte Esterase Negative (NEGATIVE) 06/24/17 13:30 Urine Bacteria Few /hpf (NONE SEEN) 06/24/17 13:30 Urine Mucus Rare 06/24/17 13:30 Active Medications Duloxetine HCl (Cymbalta -) 30 mg PO DAILY [facility] Sodium Chloride (Normal Saline -) 1,000 mls @ 125 mls/hr IV ASDIR [facility] Last Admin: 06/24/17 20:16 Dose: 125 mls/hr Levetiracetam (Keppra -) 750 mg PO BID [facility] Last Admin: 06/25/17 10:19 Dose: 250 mg ASSESSMENT/PLAN: 32yo M with PMH of seizures on keppra, active tobacco and marijuana smoker who p /w agitation and dystonia following benadryl overdose. #Benadryl OD, agitation/dystonia improved -QTc wnl (initial QTc 598) -Good UOP, will /c Mcneill -c/w IVF and Ativan PRN for agitation -telemetry monitoring ANA MARIA, improving, Cr 1.5 (admission 2.0) -continue IVF #depression -psychiatry consult -Start Cymbalta, will refer to individual therapy #seizure disorder with possible breakthrough seizures -Neuro consulted: will inc home Keppra -f/u head CT #Troponemia, likely 2/2 to ischemic demand, low suspicion for ACS -> trop 0.11 to 0.03, no ischemic changes onn EKG, and pt asx #FEN: NS@125 / lytes wnl / Regular diet #PPX: SCD's #DISPO: continue tele monitoring, anticipate d/c home in 24-48h d/w Dr. More Chapman MD PGY1 - Internal Medicine Visit type - Emergency Visit Emergency Visit: No - New Patient This patient is new to me today: Yes Date on this admission: 06/25/17 - Critical Care Critical Care patient: No
--- NOTE | 2017-06-25 09:21 | CON.NEURO ---
Consult - History of Present Illness History of Present Illness: 32 yo m with PMH of seizures d/p on keppra, who presents s/p benadryl overdose. he was initially brought in by girlfriend, agitated, experienced dystonia, had tachycardia, urinary retention and mydriasis. Was treated with ativan, haney and IVF. above symptoms resolved. Poison control was sontacted and per their instructions, patient is to be treated with IVF and benzos only. Patient states that last night he took a whole bottle of benadryl because he desperately wanted to sleep and felt depressed. He is unsure of whether he wanted top but states "my life is in disarray". he has not attempted SI before but states that he has been depressed for a while. denies changes in appetite or withdrawal from social activities. He currently denies CP, sob, n/v, and pain, diaphoresis, vision changes, dry mouth/eyes, weakness, numbness. HX of seziures since 2018 (?), last seizures in 04/29 and 05/01 , then about 1.5 month ago had another seziure went to [facility] and his depakote was changed to keppra , on keppra since then; tolerating ok up to this point - History Source History Provided By: Patient, Medical Record - Past Medical History Pulmonary: Yes: Asthma - Alcohol/Substance Use Hx Alcohol Use: Yes (drinks alcohol socially) - Smoking History Smoking history: Current every day smoker Have you smoked in the past 12 months: Yes Aproximately how many cigarettes per day: 6 Home Medications - Allergies Allergies/Adverse Reactions: Allergies Allergy/AdvReac Type Severity Reaction Status Date / Time No Known Allergies Allergy Verified 06/24/17 13:09 - Home Medications Home Medications: Ambulatory Orders Doxylamine Succinate [Sleep Aid] 50 mg PO HS PRN 06/24/17 levETIRAcetam [Keppra -] 500 mg PO BID 06/24/17 Physical Exam-Neuro Vital Signs: Vital Signs Temperature 98.7 F 06/25/17 06:00 Pulse Rate 86 06/25/17 06:00 Respiratory Rate 18 06/25/17 06:00 Blood Pressure 119/74 06/25/17 06:00 O2 Sat by Pulse Oximetry (%) 99 06/24/17 22:00 Constitutional: Yes: Well Nourished, No Distress Labs: CBC, BMP 06/25/17 06:05 06/25/17 06:05 - Neuro Exam Level Of Consciousness: Yes: Alert, Oriented to Person (EOMI, no facial, motor 5 /5, no drift , nonfocal ) Problem List - Problems (1) Epilepsy Code(s): G40.909 - EPILEPSY, UNSP, NOT INTRACTABLE, WITHOUT STATUS EPILEPTICUS (2) Overdose Code(s): T50.901A - POISONING BY UNSP DRUG/MEDS/BIOL SUBST, ACCIDENTAL, INIT Qualifiers: Encounter type: initial encounter Injury intent: undetermined intent Qualified Code(s): T50.904A - Poisoning by unspecified drugs, medicaments and biological substances, undetermined, initial encounter (3) Prolonged QT interval Code(s): R94.31 - ABNORMAL ELECTROCARDIOGRAM [ECG] [EKG] (4) Suicidal ideation Code(s): R45.851 - SUICIDAL IDEATIONS Assessment/Plan 32 yo m with PMH of seizures d/p on keppra, who presents s/p benadryl overdose. he was initially brought in by girlfriend, agitated, experienced dystonia, had tachycardia, urinary retention and mydriasis. Was treated with ativan, haney and IVF. above symptoms resolved. Poison control was sontacted and per their instructions, patient is to be treated with IVF and benzos only. Patient states that last night he took a whole bottle of benadryl because he desperately wanted to sleep and felt depressed. He is unsure of whether he wanted top but states "my life is in disarray". he has not attempted SI before but states that he has been depressed for a while. denies changes in appetite or withdrawal from social activities. He currently denies CP, sob, n/v, and pain, diaphoresis, vision changes, dry mouth/eyes, weakness, numbness. HX of seziures since 2018 (?), last seizures in 04/29 and 05/01 , then about 1.5 month ago had another seizure went to [facility] and his depakote was changed to keppra , on keppra since then; tolerating ok up to this point -- unclear if this was a breakthrough seizure-- inc kera [id number] PSYCH consult can FU seizures as an outpt Dr Madden [phone]
[2017-06-25] MEDS: levETIRAcetam 500 MG TABLET (FP) PO SCH (09:25)
[2017-06-25] MEDS: levETIRAcetam 250 MG TABLET (FP) PO SCH ×2 (10:19→22:18)
--- NOTE | 2017-06-25 10:49 | EKG ---
Test Reason : Blood Pressure : / mmHG Vent. Rate : 084 BPM Atrial Rate : 084 BPM P-R Int : 180 ms QRS Dur : 096 ms QT Int : 380 ms P-R-T Axes : 046 022 022 degrees QTc Int : 449 ms NORMAL SINUS RHYTHM NONSPECIFIC ST AND T WAVE ABNORMALITY ABNORMAL ECG WHEN COMPARED WITH ECG OF 24-JUN-2017 13:17, VENT. RATE HAS DECREASED BY [address] ELEVATION NOW PRESENT IN ANTERIOR LEADS NONSPECIFIC T WAVE ABNORMALITY NOW EVIDENT IN INFERIOR LEADS NONSPECIFIC T WAVE ABNORMALITY, IMPROVED IN LATERAL LEADS Confirmed by TERE MANDUJANO, PERCY ([id number]) on 06/25/2017 10:48:43 AM Referred By: Confirmed By:PERCY CARRANZA MD
--- NOTE | 2017-06-25 11:15 | CON.PSY ---
Psychiatry Consult Chief Complaint: 32 year old male, lives with his significant other and theit [employer] Children. Patient admitted followiong the indestion of Benadryl tabs. No history of deepression or psych tratment. patient denies any suicidal thoughts or plans now but said he was upset after discovering that he owed $5000 . patients father commited suicide 30Yrs ago. Symptoms: reports: Depressed Mood, Suicidality - Previous Psychiatric Treatment Outpatient: None Inpatient: None - Previous Substance Abuse Treatment Outpatient: None Inpatient: None - Current Medications Current Medications: Active Medications Sodium Chloride (Normal Saline -) 1,000 mls @ 125 mls/hr IV ASDIR [facility] Last Admin: 06/24/17 20:16 Dose: 125 mls/hr Levetiracetam (Keppra -) 750 mg PO BID [facility] Last Admin: 06/25/17 10:19 Dose: 250 mg Lorazepam (Ativan Injection -) 1 mg IVPUSH Q6H PRN PRN Reason: AGITATION - Allergies Allergies: Allergies Allergy/AdvReac Type Severity Reaction Status Date / Time No Known Allergies Allergy Verified 06/24/17 13:09 - Current Living Status Usual Living Arrangement: With Significant Other - Current Mental Status Evaluation Appearance: Well Groomed Attitude: Cooperative - Affect Affect: Constrictive Appropriateness: Appropriate to Content - Mood Mood: Depressed - Speech/Language Expressive: Coherent - Psychomotor Activity Psychomotor Activity: Slowed - Thought Process Thought Process: Intact - Thought Content Hallucinations: Absent Delusions: Absent - Self Perception Self Perception: No Impairment - Cognition Attention: Alert Orientation: Time Memory, Immediate Recall: Intact Memory, Short Term: 3/3 Memory, Remote with Promptin/3 - Concentration Serial Sevens Intact: Yes Simple Calculations Intact: Yes - Abstraction Proverb Interpretation: Intact - Insight Insight: Intact - Impulse Control Impulse Control: Minimally Impaired - Suicidal Ideation Suicidal Ideation: No - Homicidal Ideation Homicidal Ideation: No Assessment/Plan 1)D/C 1:1 2) Start Cymbalta 30mg po od. #) Refer patient for Psychiatyric follow up. 4) will follow.
[2017-06-25 11:21] LABS: ALLENS TEST POSITIVE; ARTERIAL BLD GAS O2 SATURATION 96.5 % (90-98.9); ARTERIAL BLOOD GAS BASE EXCESS -1.1 meq/l (-2-2); ARTERIAL BLOOD GAS PCO2 34.6 mmHg (35-45); ARTERIAL BLOOD GAS PO2 88.2 mmHg (80-100); ARTERIAL BLOOD GAS pH 7.42 (7.35-7.45)
--- NOTE | 2017-06-25 12:03 | EKG ---
Test Reason : Blood Pressure : / mmHG Vent. Rate : 079 BPM Atrial Rate : 079 BPM P-R Int : 180 ms QRS Dur : 094 ms QT Int : 366 ms P-R-T Axes : 057 033 022 degrees QTc Int : 419 ms NORMAL SINUS RHYTHM MINIMAL VOLTAGE CRITERIA FOR LVH, MAY BE NORMAL VARIANT BORDERLINE ECG WHEN COMPARED WITH ECG OF 24-JUN-2017 22:22, NO SIGNIFICANT CHANGE WAS FOUND Confirmed by TERE MANDUJANO, PERCY ([id number]) on 06/25/2017 12:03:13 PM Referred By: Yuri GIFFORD Confirmed By:PERCY CARRANZA MD
--- NOTE | 2017-06-25 12:37 | EKG ---
Test Reason : Blood Pressure : / mmHG Vent. Rate : 082 BPM Atrial Rate : 082 BPM P-R Int : 178 ms QRS Dur : 094 ms QT Int : 378 ms P-R-T Axes : 059 029 019 degrees QTc Int : 441 ms NORMAL SINUS RHYTHM NORMAL ECG WHEN COMPARED WITH ECG OF 24-JUN-2017 20:37, NO SIGNIFICANT CHANGE WAS FOUND Confirmed by PERCY CARRANZA MD ([id number]) on 06/25/2017 12:36:57 PM Referred By: Confirmed By:PERCY CARRANZA MD
--- NOTE | 2017-06-25 15:28 | PN ---
Teaching Attending Note Name of Resident: Kristina Chapman ATTENDING PHYSICIAN STATEMENT I saw and evaluated the patient. I reviewed the resident's note and discussed the case with the resident. I agree with the resident's findings and plan as documented. SUBJECTIVE: Patient complains his mouth is dry. OBJECTIVE: Vital Signs Period Temp Pulse Resp BP Sys/Banks Pulse Ox Last 24 Hr 97.7 F-98.7 F 76-100 18-22 119-146/62-86 96-99 HEART: S1S2, RRR LUNGS: Clear ABDOMEN: Obese, soft, non-tender, non-distended, normal BS EXTREMITIES: No edema Laboratory Results - last 24 hr 06/24/17 06/24/17 06/24/17 15:56 16:31 16:31 WBC RBC Hgb Hct MCV MCH MCHC RDW Plt Count MPV Neutrophils % Lymphocytes % Monocytes % Eosinophils % Basophils % Anticoagulation Therapy Puncture Site ABG pH ABG pCO2 at Pt Temp ABG pO2 at Pt Temp ABG HCO3 ABG O2 Sat (Measured) ABG O2 Content ABG Base Excess Taco Test Carboxyhemoglobin 1.2 Methemoglobin 1.3 O2 Delivery Device Oxygen Flow Rate Vent Mode Vent Rate Mechanical Rate PEEP Pressure Support Vent Sodium 138 Potassium 4.5 Chloride 107 Carbon Dioxide 21 D Anion Gap 10 BUN 17 Creatinine 1.8 H Creat Clearance w eGFR Random Glucose 122 H D Lactic Acid 3.9 H* Calcium 7.9 L Phosphorus Magnesium Total Bilirubin AST ALT Alkaline Phosphatase Troponin I Total Protein Albumin Ur Random Sodium Ur Random Potassium Ur Random Chloride Urine Creatinine 06/24/17 06/24/17 06/24/17 17:12 19:35 19:35 WBC RBC Hgb Hct MCV MCH MCHC RDW Plt Count MPV Neutrophils % Lymphocytes % Monocytes % Eosinophils % Basophils % Anticoagulation Therapy No Result Required. Puncture Site Right radial ABG pH 7.36 ABG pCO2 at Pt Temp 33.3 L ABG pO2 at Pt Temp 104.0 H ABG HCO3 18.2 L ABG O2 Sat (Measured) 96.8 ABG O2 Content 20.1 ABG Base Excess -5.9 L Taco Test Positive Carboxyhemoglobin Methemoglobin O2 Delivery Device No Result Required. Oxygen Flow Rate No Vent Mode No Result Required. Vent Rate No Result Required. Mechanical Rate No Result Required. PEEP Pressure Support Vent No Result Required. Sodium Potassium Chloride Carbon Dioxide Anion Gap BUN Creatinine Creat Clearance w eGFR Random Glucose Lactic Acid Calcium Phosphorus 3.3 Magnesium 3.0 H Total Bilirubin AST ALT Alkaline Phosphatase Troponin I Total Protein Albumin Ur Random Sodium 109 Ur Random Potassium 16.6 Ur Random Chloride 83 Urine Creatinine 97.1 06/24/17 06/24/17 06/25/17 21:45 21:45 06:05 WBC 11.2 H RBC 4.66 Hgb 14.0 D Hct 40.6 D MCV 87.1 MCH 30.0 MCHC 34.5 RDW 14.2 Plt Count 199 MPV 9.7 Neutrophils % 70.7 D Lymphocytes % 16.1 D Monocytes % 12.7 H Eosinophils % 0.1 Basophils % 0.4 Anticoagulation Therapy Puncture Site ABG pH ABG pCO2 at Pt Temp ABG pO2 at Pt Temp ABG HCO3 ABG O2 Sat (Measured) ABG O2 Content ABG Base Excess Taco Test Carboxyhemoglobin Methemoglobin O2 Delivery Device Oxygen Flow Rate Vent Mode Vent Rate Mechanical Rate PEEP Pressure Support Vent Sodium Potassium Chloride Carbon Dioxide Anion Gap BUN Creatinine Creat Clearance w eGFR Random Glucose Lactic Acid 1.2 Calcium Phosphorus 3.8 Magnesium 2.9 H Total Bilirubin AST ALT Alkaline Phosphatase Troponin I Total Protein Albumin Ur Random Sodium Ur Random Potassium Ur Random Chloride Urine Creatinine 06/25/17 06/25/17 06/25/17 06:05 11:10 11:56 WBC RBC Hgb Hct MCV MCH MCHC RDW Plt Count MPV Neutrophils % Lymphocytes % Monocytes % Eosinophils % Basophils % Anticoagulation Therapy No Result Required. Puncture Site Right radial ABG pH 7.42 ABG pCO2 at Pt Temp 34.6 L ABG pO2 at Pt Temp 88.2 ABG HCO3 22.2 ABG O2 Sat (Measured) 96.5 ABG O2 Content 18.7 ABG Base Excess -1.1 Taco Test Positive Carboxyhemoglobin Methemoglobin O2 Delivery Device Room air Oxygen Flow Rate No Result Required. Vent Mode No Result Required. Vent Rate No Result Required. Mechanical Rate No PEEP 0.0 Pressure Support Vent No Result Required. Sodium 142 Potassium 4.1 Chloride 108 H Carbon Dioxide 21 Anion Gap 13 BUN 13 D Creatinine 1.5 H Creat Clearance w eGFR 53.57 Random Glucose 74 D Lactic Acid Calcium 8.4 L Phosphorus 3.8 Magnesium 2.9 H Total Bilirubin 1.0 D AST 191 H D ALT 60 D Alkaline Phosphatase 58 D Troponin I 0.11 H 0.03 D Total Protein 7.0 D Albumin 4.3 D Ur Random Sodium Ur Random Potassium Ur Random Chloride Urine Creatinine Current Medications Generic Name Dose Route Start Last Admin Trade Name Freq PRN Reason Stop Dose Admin Duloxetine HCl 30 mg 06/26/17 10:00 Cymbalta - PO DAILY DEYSI Sodium Chloride 1,000 mls @ 125 mls/hr 06/24/17 19:00 06/24/17 20:16 Normal Saline - IV 125 mls/hr ASDIR DEYSI Administration Levetiracetam 750 mg 06/25/17 10:00 06/25/17 10:19 Keppra - PO 250 mg BID DEYSI Administration Lorazepam 1 mg 06/24/17 19:10 Ativan Injection - IVPUSH Q6H PRN AGITATION ASSESSMENT AND PLAN: This is a 32 year old man with a history of seizures who presented to the ED with agitation secondary to Benadryl overdose. 1. Benadryl overdose - QTc improved - No further dystonia - Continue IV fluid, telemetry monitoring 2. Seizure disorder with possible breakthrough seizure - Keppra increased 3. Acute kidney injury - Improving - Continue IV fluid - Monitor creatinine 4. Depression - Cymbalta started
[2017-06-25] MEDS: SODIUM CHLORIDE 1,000 ML IV SCH (22:18)
[2017-06-26 06:48] LABS: HEMATOCRIT 38.9 % (35.4-49); HEMOGLOBIN 13.2 GM/dL (11.7-16.9); MCH 29.7 pg (25.7-33.7); MCHC 33.9 g/dl (32.0-35.9); MEAN CELL VOLUME 87.5 fl (80-96); MEAN PLT VOLUME 9.7 fl (7.5-11.1); PLATELET COUNT 189 K/MM3 (134-434); RBC 4.44 M/mm3 (4.00-5.60); RDW 13.9 % (11.9-15.9); WHITE BLOOD COUNT 8.2 K/mm3 (4.0-10.0)
[2017-06-26 07:13] LABS: CHLORIDE 105 mmol/L (98-107); POTASSIUM 3.9 mmol/L (3.5-5.1); SODIUM 140 mmol/L (136-145)
[2017-06-26 07:28] LABS: ALBUMIN 3.9 g/dl (3.4-5.0); ALK PHOS 58 U/L (45-117); ANION GAP 13 (8-16); BILIRUBIN,TOTAL 0.9 mg/dL (0.2-1.0); BLOOD UREA NITROGEN 12 mg/dL (7-18); CALCIUM 8.1 mg/dL (8.5-10.1); CO2 22 mmol/L (21-32); CREATININE 1.5 mg/dL (0.7-1.3); GLUCOSE,RANDOM 88 mg/dL (74-106); MAGNESIUM 2.3 mg/dL (1.8-2.4); PHOSPHOROUS 2.8 mg/dL (2.5-4.9); SGOT/AST 153 U/L (15-37); SGPT/ALT 58 U/L (12-78); TOT PROT 6.8 g/dl (6.4-8.2)
--- NOTE | 2017-06-26 08:05 | PN ---
Physical Exam: SUBJECTIVE: Patient seen and examined OBJECTIVE: Vital Signs Period Temp Pulse Resp BP Sys/Banks Pulse Ox Last 24 Hr 98.0 F-99.2 F 71-90 18-22 124-149/46-93 96-96 Intake & Output 06/23/17 06/24/17 06/25/17 06/26/17 23:59 23:59 23:59 23:59 Intake Total 2800 1550 Output Total 250 3850 900 Balance -250 -1050 650 Weight 86.183 kg GENERAL: The patient is awake, alert, and fully oriented, in no acute distress. HEAD: Normal with no signs of trauma. EYES: PERRL, extraocular movements intact, sclera anicteric, conjunctiva clear. No ptosis. ENT: Ears normal, nares patent, oropharynx clear without exudates, moist mucous membranes. NECK: Trachea midline, full range of motion, supple. LUNGS: Breath sounds equal, clear to auscultation bilaterally, no wheezes, no crackles, no accessory muscle use. HEART: Regular rate and rhythm, S1, S2 without murmur, rub or gallop. ABDOMEN: Soft, nontender, nondistended, normoactive bowel sounds, no guarding, no rebound, no hepatosplenomegaly, no masses. EXTREMITIES: 2+ pulses, warm, well-perfused, no edema. NEUROLOGICAL: Cranial nerves II through XII grossly intact. Normal speech, gait not observed. PSYCH: Normal mood, normal affect. SKIN: Warm, dry, normal turgor, no rashes or lesions noted CBC, BMP 06/26/17 06:15 06/26/17 06:15 06/25/17 06/26/17 06:05 06:15 Calcium 8.4 L 8.1 L Phosphorus 3.8 2.8 D Magnesium 2.9 H 2.3 D Total Bilirubin 1.0 D 0.9 AST 191 H D 153 H ALT 60 D 58 Alkaline Phosphatase 58 D 58 Total Protein 7.0 D 6.8 Albumin 4.3 D 3.9 Active Medications Duloxetine HCl (Cymbalta -) 30 mg PO DAILY DEY[facility] Sodium Chloride (Normal Saline -) 1,000 mls @ 125 mls/hr IV ASDIR [facility] Last Admin: 06/25/17 22:18 Dose: 125 mls/hr Levetiracetam (Keppra -) 750 mg PO BID [facility] Last Admin: 06/25/17 22:18 Dose: 750 mg Lorazepam (Ativan Injection -) 1 mg IVPUSH Q6H PRN PRN Reason: AGITATION ASSESSMENT/PLAN: 32yo M with PMH of seizures on keppra, active tobacco and marijuana smoker who p /w agitation and dystonia following benadryl overdose. #Benadryl OD, agitation/dystonia improved -QTc wnl (initial QTc 598) -Good UOP, will /c Mcneill -c/w IVF and Ativan PRN for agitation -telemetry monitoring ANA MARIA, improving, Cr 1.5 (admission 2.0) -continue IVF #depression -psychiatry consult -Start Cymbalta, will refer to individual therapy #seizure disorder with possible breakthrough seizures -Neuro consulted: will inc home Keppra -f/u head CT #Troponemia, likely 2/2 to ischemic demand, low suspicion for ACS -> trop 0.11 to 0.03, no ischemic changes onn EKG, and pt asx #FEN: NS@125 / lytes wnl / Regular diet #PPX: SCD's #DISPO: continue tele monitoring, anticipate d/c home in 24-48h d/w Dr. More Chpaman MD PGY1 - Internal Medicine
[2017-06-26] MEDS: levETIRAcetam 250 MG TABLET (FP) PO SCH (09:29)
[2017-06-26] MEDS ORDERED: DULoxetine HCL 30 MG CAPSULE.DR (FP) PO SCH (10:00)
[2017-06-26] MEDS ORDERED: IBUPROFEN 600 MG TABLET (FP) PO ONE ×2 (10:30→15:45)
--- NOTE | 2017-06-26 16:25 | PN ---
Teaching Attending Note Name of Resident: Kristina Chapman ATTENDING PHYSICIAN STATEMENT I saw and evaluated the patient. I reviewed the resident's note and discussed the case with the resident. I agree with the resident's findings and plan as documented. SUBJECTIVE: No complaints. OBJECTIVE: Vital Signs Period Temp Pulse Resp BP Sys/Banks Pulse Ox Last 24 Hr 98.0 F-98.9 F 71-80 18-20 131-150/46-93 96 HEART: S1S2, RRR LUNGS: Clear ABDOMEN: Obese, soft, non-tender, non-distended, normal BS EXTREMITIES: No edema Laboratory Results - last 24 hr 06/26/17 06/26/17 06:15 06:15 WBC 8.2 RBC 4.44 Hgb 13.2 Hct 38.9 MCV 87.5 MCH 29.7 MCHC 33.9 RDW 13.9 Plt Count 189 MPV 9.7 Sodium 140 Potassium 3.9 Chloride 105 Carbon Dioxide 22 Anion Gap 13 BUN 12 Creatinine 1.5 H Creat Clearance w eGFR 53.57 Random Glucose 88 Calcium 8.1 L Phosphorus 2.8 D Magnesium 2.3 D Total Bilirubin 0.9 AST 153 H ALT 58 Alkaline Phosphatase 58 Total Protein 6.8 Albumin 3.9 Current Medications Generic Name Dose Route Start Last Admin Trade Name Freq PRN Reason Stop Dose Admin Duloxetine HCl 30 mg 06/26/17 10:00 06/26/17 09:29 Cymbalta - PO 30 mg DAILY DEYSI Administration Sodium Chloride 1,000 mls @ 125 mls/hr 06/24/17 19:00 06/25/17 22:18 Normal Saline - IV 125 mls/hr ASDIR DEYSI Administration Levetiracetam 750 mg 06/25/17 10:00 06/26/17 09:29 Keppra - PO 750 mg BID DEYSI Administration Lorazepam 1 mg 06/24/17 19:10 Ativan Injection - IVPUSH Q6H PRN AGITATION ASSESSMENT AND PLAN: This is a 32 year old man with a history of seizures who presented to the ED with agitation secondary to Benadryl overdose. 1. Benadryl overdose - QTc improved - No further dystonia 2. Seizure disorder with possible breakthrough seizure - Keppra increased 3. Acute kidney injury - Creatinine stable - Encourage PO fluids 4. Depression - Cymbalta started 5. Ok for discharge home with outpatient psychiatry follow up
--- NOTE | 2017-06-26 19:27 | DS ---
Physical Exam: SUBJECTIVE: Patient seen and examined. Offers no complaints. OBJECTIVE: Vital Signs Period Temp Pulse Resp BP Sys/Banks Pulse Ox Last 24 Hr 97.8 F-98.9 F 72-80 18-20 130-150/46-84 96-97 PHYSICAL EXAM GENERAL: aaox3, nad HEENT: sclera anicteric, conjunctiva clear LUNGS: CTAB HEART: RRR, normal s1/s2, no m/r/g ABDOMEN: obese, soft, NTND EXTREMITIES: 2+ DP pulses, wwp, no edema LABS Laboratory Results - last 24 hr 06/26/17 06/26/17 06:15 06:15 WBC 8.2 RBC 4.44 Hgb 13.2 Hct 38.9 MCV 87.5 MCH 29.7 MCHC 33.9 RDW 13.9 Plt Count 189 MPV 9.7 Sodium 140 Potassium 3.9 Chloride 105 Carbon Dioxide 22 Anion Gap 13 BUN 12 Creatinine 1.5 H Creat Clearance w eGFR 53.57 Random Glucose 88 Calcium 8.1 L Phosphorus 2.8 D Magnesium 2.3 D Total Bilirubin 0.9 AST 153 H ALT 58 Alkaline Phosphatase 58 Total Protein 6.8 Albumin 3.9 HOSPITAL COURSE: Date of Admission:06/24/17 Date of Discharge: 06/26/17 Pre-Hospital Course: 32yo man with PMH of seizures on keppra, active tobacco and marijuana smoker who presents with agitation and dystonia following benadryl overdose. He was initially brought in by his girlfriend, agitated, experienced dystonia, had tachycardia, urinary retention and mydriasis. He was treated with Ativan, IVF, and a haney was inserted. His presenting symtpoms resolved. Poison control was contacted and per their instructions, patient is to be treated with IVF and benzos only. Patient states that last night he took a whole bottle of benadryl, because he desperately wanted to sleep and felt depressed. He states "my life is in disarray", but denies SI. No prior suicide attempts, but endorses feeling depressed. Denies changes in appetite or withdrawal from social activities. He currently denies CP, sob, n/v, and pain, diaphoresis, vision changes, dry mouth/ eyes, focal weakness, numbness. EKG noted to have prolonged QTc 598. Subsequent Hospital Course: Patient admitted for Benadryl overdose, and was treated with Ativan and IVF. Poison control was consulted. No further agitation and dystonia were noted. He was placed on telemetry monitoring. No events were recorded. Serial EKGs were performed and QTc normalized by discharge. Patient wasnoted to have mild troponemia likely 2/2 to ischemic demand and low suspicion for ACS. Troponins peaked at 0.11, no ischemic changes on EKG, and pt asymptomatic. Patient was noted to have ANA MARIA with Cr 2.0 on admission, which was downtrending by discharge. Patient was encouraged to have PO fluids. Patient has a history seizure disorder and was noted to have possible breakthrough seizure. Neurology was consulted. Keppra was increased to 750mg PO BID. Head CT was negative. Patient reported depression. Psychiatry was consulted. Patient was started on Cymbalta and will be referred to individual therapy. Consults: Neurology - Dr. Madden Psychiatry - Dr. Dugan IMAGING: EXAM#: TYPE/EXAM: RESULT: [id number] RAD/SHOULDER-RIGHT Clinical information. Right shoulder pain Right shoulder, 2 views Findings. The osseous structures demonstrates normal mineralization and trabeculation. There is no evidence of fracture-dislocation, subluxation or foreign body. The articular surfaces do not demonstrate evidence of degenerative changes. Normal AC joint. No pulmonary disease is seen in the visualized right lung. Impression. No acute bony abnormalities are seen. No evidence of glenohumeral joint dislocation. EXAM#: TYPE/EXAM: RESULT: [id number] CT/HEAD CT WITHOUT CONTRAST INDICATION: Neurologic occurrence. Clinical suspicion for stroke. TECHNIQUE: Axial noncontrast head CT with coronal and sagittal reformations. COMPARISON: 2016 CT head. FINDINGS: There is no acute intracranial hemorrhage or extra- axial collection. There is no compelling evidence of acute transcortical infarction at this time. The ventricles, sulci and cisterns are appropriate size. There is no mass effect, midline shift or hydrocephalus. The calvarium is intact. The visualized paranasal sinuses and mastoid air cells are clear. IMPRESSION: Definite interval change from 12/22/[address] No acute intracranial hemorrhage, mass effects or hydrocephalus. No compelling evidence of acute transcortical infarction at this time. MRI is more sensitive in detecting early acute infarctions. Please correlate clinically. EXAM#: TYPE/EXAM: RESULT: [id number] RAD/CHEST X-RAY PORTABLE* A single frontal portable projection of the chest at 7:22 PM is submitted. The heart size is within normal limits. The lung corea are free of pulmonary infiltrates or pleural effusions. IMPRESSION: Normal chest. Minutes to complete discharge: 40 Discharge Summary Reason For Visit: ACUTE KIDNEY INJURY/DRUG OVERDOSE/LACTIC ACIDOSIS Condition: Stable - Instructions Diet, Activity, Other Instructions: You were admitted to the hospital for overdosing on Benadryl. You were started on an anti-depressant called Cymbalta. You also had a seizure and your home anti -seizure medication dose was increased. Recommendations: -You may resume your regular activities and diet. Due to your seizures you should avoid driving or operating heavy equipment. -You should stop smoking cigarettes. Please see the educational information provided. Talk to your primary care doctor about ways to quit. -You can apply ice packs to your shoulder and take Motrin 400mg every 4-6 hours as needed for the pain. Do not take more than 6 pills per day. Medications: -Your Keppra (anti-seizure medication) was increased. Take Keppra 750mg twice per day -Take Cymbalta (anti-depressant) 30mg once per day Follow-ups: -Make an appointment to see Dr. Madden (neurologist) to discuss on your seizures in 2 weeks. -Make an appointment with a psychiatrist for individual therapy. Refer to the list of Psychiatrists that the sr. social media & mobile manager gave you -Make an appointment with your primary care physician for post hospital evaluation in the next 2 weeks. Primary Care Doctor is Dr. Chaudhary. You can see her every Friday after 1 PM. Address: [address] [place] [address]. Please return to the Emergency Department if you are feeling the urge to overdose, feel suicidal, have continuous seizures, or have any worsening, new or concerning symptoms. Referrals: Chucho Ramsey MD [Staff Physician] - 2 Weeks (Dr Chaudhary) Armida Chaudhary RES [Resident] - Sanford Madden DO [Staff Physician] - 2 Weeks Disposition: HOME - Home Medications Comprehensive Discharge Medication List: Ambulatory Orders Doxylamine Succinate [Sleep Aid] 50 mg PO HS PRN 06/24/17 Duloxetine HCl [Cymbalta -] 30 mg PO DAILY #30 capsule.dr 06/26/17 levETIRAcetam [Keppra -] 750 mg PO BID #180 tablet 06/26/17 This patient is new to me today: No Emergency Visit: No Critical Care patient: No - Discharge Referral Referred to [facility] No
[2017-06-26 19:55] VITALS: BP 140/84; PULSE 68; TEMP 98.8
== END 2017-06-26 19:19 | disposition home or self-care (01) | DRG 812 ==
LOC: JER 13:01 → JERBED 18:53 → J4W 21:10
PROVIDERS: ADMIT Internal Medicine; ATTEND Internal Medicine
DX: T45.0X1A Poisoning by antiallergic and antiemetic drugs, accidental (unintentional), initial encounter (principal); N17.9 Acute kidney failure, unspecified; G40.909 Epilepsy, unspecified, not intractable, without status epilepticus; R45.851 Suicidal ideations; Y92.9 Unspecified place or not applicable; E87.2 Acidosis; F32.9 Major depressive disorder, single episode, unspecified
CPT/HCPCS: 36415; 36600; 70450-TC; 71045-TC-FY; 73030-TC-RT-FY; 80048; 80053; 80164; 80307; 81003; 81015; 82140; 82375; 82436; 82550; 82553; 82570; 82803; 82962; 83050; 83605; 83735; 84100; 84133; 84300; 84484; 85025; 85027; 93005; 93010; 99285-25; J7030

== ENCOUNTER 2017-09-07 13:42 | Emergency (ER) | payer OTHER ==
--- NOTE | 2017-09-07 13:50 | PDOC ---
History of Present Illness - General Chief Complaint: Seizure Stated Complaint: SEIZURES Time Seen by Provider: 09/07/17 13:50 - History of Present Illness Initial Comments: 09/07/17 14:10 Mr. Lemons is a 32 yo male w/ pmh of seizure disorder BIBA after witnessed generalized 3-4 minute seizure earlier today followed by non- responsiveness. She reports she called EMS immediately; Mr. Lemons had another seizure shortly after their arrival which they were able to break with 5mg versed. He has been unresponsive since this time. EMS also started 1L NS en route as patient was slightly hypotensive in the high 90's systolic BP. Allergies: NKDA Past History - Past Medical History Allergies/Adverse Reactions: Allergies Allergy/AdvReac Type Severity Reaction Status Date / Time No Known Allergies Allergy Verified 07/18/17 09:55 Home Medications: Ambulatory Orders Divalproex Sodium [Depakote] 500 mg PO BID #28 tablet. 07/18/17 levETIRAcetam [Keppra -] 1,000 mg PO BID #56 tablet 07/18/17 Divalproex Sodium [Depakote] 500 mg PO BID #60 tablet. 09/07/17 Anemia: No Asthma: Yes (2009) Cancer: No Cardiac Disorders: No CVA: No COPD: No CHF: No Dementia: No Diabetes: No GI Disorders: No Disorders: No HTN: No Hypercholesterolemia: Yes (diet) Liver Disease: No Seizures: Yes (STARTED THIS PAST ) Thyroid Disease: No - Surgical History Abdominal Surgery: No Appendectomy: Yes (2001) Cardiac Surgery: No Cholecystectomy: No Lung Surgery: No Neurologic Surgery: No Orthopedic Surgery: Yes (RH (2)RODS) - Suicide/Smoking/Psychosocial Hx Smoking History: Current every day smoker Have you smoked in the past 12 months: Yes Number of Cigarettes Smoked Daily: 6 'Breaking Loose' booklet given: 12/22/16 Hx Alcohol Use: Yes (drinks alcohol socially) Drug/Substance Use Hx: Yes (marijuana) Substance Use Type: Alcohol, Marijuana Hx Substance Use Treatment: No Review of Systems - Review of Systems Comments:: 09/07/17 14:13 Unable to obtain further. *Physical Exam - Physical Exam Comments: 09/07/17 14:14 GENERAL: +Patient currently asleep with snoring resperations in bed. In no acute distress HEAD: No signs of trauma, normocephalic, atraumatic EYES: PERRLA, EOMI, sclera anicteric, conjunctiva clear ENT: Auricles normal inspection, nares patent, oropharynx clear without exudates. Moist mucosa NECK: Normal ROM, supple, no lymphadenopathy, JVD, or masses LUNGS: No distress, clear to auscultation bilaterally HEART: Regular rate and rhythm, normal S1 and S2, no murmurs, rubs or gallops, peripheral pulses normal and equal bilaterally. ABDOMEN: Soft, nontender, normoactive bowel sounds. No guarding, no rebound. No masses EXTREMITIES: Normal inspection, Normal range of motion, no edema. No clubbing or cyanosis. NEUROLOGICAL: Unable to assess. SKIN: Warm, Dry, normal turgor, no rashes or lesions noted. ED Treatment Course - LABORATORY CBC & Chemistry Diagram: 09/07/17 14:50 09/07/17 14:50 Medical Decision Making - Medical Decision Making 09/07/17 17:55 Mr. Lemons is a 32 yo male w/ known seizure disorder who presents following seizure after patient was unable to obtain appropriate seizure medications recently. Patient loaded with 1g of valproate as this was successful on last presentation for similar event. Calcium given IV for noted hypocalcemia. 09/07/17 18:19 Mr. Lemons is now AOx3 and reports that he additionally had 3 beers yesterday. Advised patient that this lowers seizure threshold and also that patient should work on improving sleep habits / hygeine for same reason. Patient able to tolerate PO. Refilled temporary depakote Rx and sent to patient's pharmacy. Patient reports he has had difficulty contacting neurologist. Instructed patient to attempt to make appointment for this week; patient requested information for Dr. Hines as well in case he is not able to contact Neurologist. Will comply with this. Patient will follow-up with neurologist later this week. Discharging to home. 09/07/17 18:24 Called patient's who will pick him up. *DC/Admit/Observation/Transfer Diagnosis at time of Disposition: Seizure - Discharge Dispostion Disposition: HOME - Prescriptions Prescriptions: Divalproex Sodium [Depakote] 500 mg PO BID #60 tablet.dr - Referrals Referrals: Kurt Segundo MD [Non Staff, Medical] - Danny Hines MD [Staff Physician] - - Patient Instructions Printed Discharge Instructions: DI for Seizure Disorder -- Adult Additional Instructions: Take seizure medications as written. Follow-up with Neurologist later this week as discussed. Return to ER if any fever, chills, altered mental status, or other concerning symptoms. - Post Discharge Activity
--- NOTE | 2017-09-07 13:52 | PDOC ---
Attending Attestation - HPI HPI: 09/07/17 14:16 Pt is a 32 yo M with a PMHx of Asthma and Seizures who presents to the ED s/p two witnessed seizures today. Patients girlfriend at bedside reports tonic clonic seizure at home, no tongue biting, no urine/bowel incontinence with prolonged postictal period. No head injury/trauma or LOC. EMS was called and patient seized again. EMS administered 5 mg of Versed and was brought to the ED for further evaluation. As per girlfreind, patient has been compliant with Keppra however ran out of his Depakote few weeks ago. 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 - Medical Decision Making 09/07/17 14:16 Documentation prepared by Lindsey Bazzi, acting as durable medical equipment technician for Mindy Gaviria MD <Lindsey Bazzi - Last Filed: 09/07/17 14:16> - Resident Resident Name: Henri Macario - ED Attending Attestation I have performed the following: I have examined & evaluated the patient, The case was reviewed & discussed with the resident, I agree w/resident's findings & plan, Exceptions are as noted - Physicial Exam PE: GENERAL: Post-ictal, sleeping, but awakens to noxious stimuli. HEAD: No signs of trauma EYES: PERRLA, EOMI, sclera anicteric, conjunctiva clear ENT: Auricles normal inspection, hearing grossly normal, nares patent, oropharynx clear without exudates. Moist mucosa NECK: Normal ROM, supple, no lymphadenopathy, JVD, or masses LUNGS: Breath sounds equal, clear to auscultation bilaterally. No wheezes, and no crackles HEART: Regular rate and rhythm, normal S1 and S2, no murmurs, rubs or gallops ABDOMEN: Soft, nontender, normoactive bowel sounds. No guarding, no rebound. No masses EXTREMITIES: Normal range of motion, no edema. No clubbing or cyanosis. No cords, erythema, or tenderness NEUROLOGICAL: Limited by post-ictal state. SKIN: Warm, Dry, normal turgor, no rashes or lesions noted. - Medical Decision Making Pt presents with seizure after running out of his depakote. Will load him with IV depacon in ED, DC when more alert. <Mindy Gaviria - Last Filed: 09/07/17 15:47>
[2017-09-07] MEDS ORDERED: VALPROATE SODIUM 500 MG/5 ML VIAL IVPB ONE (13:56)
[2017-09-07 13:59] VITALS: TEMP 97.5; BMI 29.7
[2017-09-07] MEDS ORDERED: SODIUM CHLORIDE 1,000 ML IV STA (14:00)
[2017-09-07] MEDS ORDERED: VALPROATE SODIUM 500 MG/5 ML VIAL ONE (14:02)
[2017-09-07 15:11] LABS: EOS % 1.4 % (0-4.5); HEMATOCRIT 40.4 % (35.4-49); HEMOGLOBIN 13.3 GM/dL (11.7-16.9); LYMPH % 41.9 % (8-40); MCH 29.7 pg (25.7-33.7); MEAN CELL VOLUME 89.8 fl (80-96); MEAN PLT VOLUME 10.5 fl (7.5-11.1); MONO % 13.5 % (3.8-10.2); NEUT % 42.2 % (42.8-82.8); PLATELET COUNT 161 K/MM3 (134-434); RDW 14.7 % (11.9-15.9); WHITE BLOOD COUNT 5.7 K/mm3 (4.0-10.0)
[2017-09-07 15:28] LABS: ALBUMIN 3.5 g/dl (3.4-5.0); ALK PHOS 49 U/L (45-117); ANION GAP 6 (8-16); BILIRUBIN,TOTAL 0.2 mg/dL (0.2-1.0); BLOOD UREA NITROGEN 21 mg/dL (7-18); CALCIUM 7.8 mg/dL (8.5-10.1); CHLORIDE 112 mmol/L (98-107); CO2 26 mmol/L (21-32); CREATININE 1.1 mg/dL (0.7-1.3); GLUCOSE,RANDOM 99 mg/dL (74-106); POTASSIUM 4.3 mmol/L (3.5-5.1); SGOT/AST 10 U/L (15-37); SGPT/ALT 18 U/L (12-78); SODIUM 144 mmol/L (136-145); TOT PROT 6.2 g/dl (6.4-8.2)
[2017-09-07] MEDS ORDERED: CALCIUM GLUCONATE 10% - 1,000 MG/10 ML VIAL IVPB ONE (16:14)
[2017-09-07 17:18] VITALS: BP 124/81; PULSE 52
--- NOTE | 2017-09-10 11:30 | EKG ---
Test Reason : Blood Pressure : / mmHG Vent. Rate : 057 BPM Atrial Rate : 057 BPM P-R Int : 194 ms QRS Dur : 108 ms QT Int : 432 ms P-R-T Axes : 044 036 021 degrees QTc Int : 420 ms SINUS BRADYCARDIA WITH SINUS ARRHYTHMIA ST ELEVATION, CONSIDER EARLY REPOLARIZATION BORDERLINE ECG WHEN COMPARED WITH ECG OF 18-JUL-2017 10:28, NO SIGNIFICANT CHANGE WAS FOUND Confirmed by TERE MANDUJANO, PERCY ([id number]) on 09/10/2017 11:29:53 AM Referred By: Confirmed By:PERCY CARRANZA MD
== END 2017-09-07 19:37 | disposition home or self-care (01) ==
LOC: JER 13:42
PROC: 3E0337Z Introduction of Electrolytic and Water Balance Substance into Peripheral Vein, Percutaneous Approach (ICD-10-PCS; principal; 2017-09-07)
PROC: 3E033GC Introduction of Other Therapeutic Substance into Peripheral Vein, Percutaneous Approach (ICD-10-PCS; 2017-09-07)
PROC: 3E033GC Introduction of Other Therapeutic Substance into Peripheral Vein, Percutaneous Approach (ICD-10-PCS; 2017-09-07)
DX: G40.909 Epilepsy, unspecified, not intractable, without status epilepticus (principal); E83.51 Hypocalcemia
CPT/HCPCS: 36415; 80053; 85025; 93005; 93010; 96361; 96374; 96375; 99284-25; J7030

== ENCOUNTER 2020-06-29 04:14 | Emergency (ER) | payer OTHER ==
[2020-06-29 04:31] VITALS: BMI 31.9
[2020-06-29 05:16] LABS: BASO % 0.8 % (0-2.0); EOS % 0.9 % (0-4.5); HEMATOCRIT 42.6 % (35.4-49); HEMOGLOBIN 14.6 GM/dL (11.7-16.9); MCH 30.2 pg (25.7-33.7); MCHC 34.2 g/dl (32.0-35.9); MEAN CELL VOLUME 88.4 fl (80-96); MEAN PLT VOLUME 9.5 fl (7.5-11.1); MONO % 11.4 % (3.8-10.2); NEUT % 53.9 % (42.8-82.8); PLATELET COUNT 209 K/MM3 (134-434); RBC 4.83 M/mm3 (4.00-5.60); RDW 14.2 % (11.9-15.9); WHITE BLOOD COUNT 8.6 K/mm3 (4.0-10.0)
[2020-06-29 05:22] LABS: INR 0.97 (0.83-1.09)
[2020-06-29 05:25] LABS: ACTIVATED PTT 31.1 SECONDS (25.2-36.5)
[2020-06-29 05:35] LABS: CHLORIDE 105 mmol/L (98-107); POTASSIUM 3.8 mmol/L (3.5-5.1); SODIUM 138 mmol/L (136-145)
[2020-06-29 05:38] LABS: ANION GAP 5 MMOL/L (8-16); BLOOD UREA NITROGEN 20.7 mg/dL (7-18); CO2 29 mmol/L (21-32); GLUCOSE,RANDOM 104 mg/dL (74-106); MAGNESIUM 2.2 mg/dL (1.8-2.4)
[2020-06-29 05:41] LABS: CREATININE 1.3 mg/dL (0.55-1.3); SGOT/AST 17 U/L (15-37); SGPT/ALT 32 U/L (13-61)
[2020-06-29 05:42] LABS: BILIRUBIN,TOTAL 0.2 mg/dL (0.2-1)
[2020-06-29 05:43] LABS: ALK PHOS 59 U/L (45-117)
[2020-06-29] MEDS ORDERED: ACETAMINOPHEN 325 MG TABLET (FP) PO ONE (05:46)
[2020-06-29 05:50] LABS: PHOSPHOROUS 4.4 mg/dL (2.5-4.9)
[2020-06-29] MEDS ORDERED: ACETAMINOPHEN 325 MG TABLET (FP) ONE (06:29)
[2020-06-29 08:42] VITALS: BP 122/72; PULSE 80; TEMP 98.4
== END 2020-06-29 09:00 | disposition home or self-care (01) ==
LOC: JER 04:14
DX: R07.9 Chest pain, unspecified (principal)
CPT/HCPCS: 36415; 71046-TC-FY; 80053; 82550; 82553; 83735; 84100; 84484; 85025; 85379; 85610; 85730; 93005; 93010; 99284-25

== ENCOUNTER 2020-08-24 00:42 | Emergency (ER) | payer OTHER ==
[2020-08-24 00:56] VITALS: BMI 33.6
[2020-08-24 01:32] LABS: BASO % 0.7 % (0-2.0); EOS % 0.5 % (0-4.5); HEMATOCRIT 45.3 % (35.4-49); HEMOGLOBIN 15.5 GM/dL (11.7-16.9); LYMPH % 28.5 % (8-40); MCH 30.1 pg (25.7-33.7); MCHC 34.2 g/dl (32.0-35.9); MEAN CELL VOLUME 88.1 fl (80-96); MEAN PLT VOLUME 9.6 fl (7.5-11.1); MONO % 13.2 % (3.8-10.2); NEUT % 57.1 % (42.8-82.8); PLATELET COUNT 212 K/MM3 (134-434); RBC 5.15 M/mm3 (4.00-5.60); RDW 13.6 % (11.9-15.9); WHITE BLOOD COUNT 6.9 K/mm3 (4.0-10.0)
[2020-08-24 02:00] LABS: CALCIUM 9.2 mg/dL (8.5-10.1)
[2020-08-24 02:01] LABS: ALBUMIN 4.4 g/dl (3.4-5.0); BLOOD UREA NITROGEN 12.4 mg/dL (7-18)
[2020-08-24 02:04] LABS: CREATININE 1.1 mg/dL (0.55-1.3)
[2020-08-24 02:05] LABS: BILIRUBIN,TOTAL 0.7 mg/dL (0.2-1)
[2020-08-24 02:06] LABS: TOT PROT 7.7 g/dl (6.4-8.2)
[2020-08-24] MEDS ORDERED: DIVALPROEX SODIUM 500 MG TABLET E.C. PO ONE (02:35)
[2020-08-24] MEDS ORDERED: DIVALPROEX SODIUM 500 MG TABLET E.C. ONE (02:51)
[2020-08-24 04:04] VITALS: BP 128/95; PULSE 62; TEMP 98.6
== END 2020-08-24 04:31 | disposition home or self-care (01) ==
LOC: JER 00:42
DX: R56.9 Unspecified convulsions (principal); Z91.19 Patient's noncompliance with other medical treatment and regimen
CPT/HCPCS: 36415; 70450-TC; 70486-TC; 72125-TC; 80053; 80164; 82962; 85025; 93005; 93010; 99285-25